=== PATIENT | female | born 1975 | race Caucasian/White ===

== ENCOUNTER 2021-01-06 23:06 | Inpatient (IN) | payer BC, SELFPAY ==
--- NOTE | ~2021-01-06 | XR_ITS ---
XR chest 2V 01/06/2021 23:38 Indication: Sternal chest pain Procedure: 2 view chest Comparison: No prior studies for comparison. Findings: Shallow inspiration with crowding of the pulmonary vessels. Bibasilar infiltrates may repre sent atelectasis or developing pneumonia. No pleural effusion, edema or pneumothorax. No acute osseou s abnormality. Impression: 1: Subtle bibasilar infiltrates may represent atelectasis or developing pneumonia. Reviewed, dictated and finalized at location A. Impression: 1: Subtle bibasilar infiltrates may represent atelectasis or developing pneumon ia.
--- NOTE | ~2021-01-06 | MR_ITS ---
EXAMINATION: MR MRCP wo/w con/w 3D wo ind DATE: 01/08/2021 08:10 INDICATION: Nausea and vomiting TECHNIQUE: Magnetic resonance imaging (MRI) of the abdomen was performed without and with intravenous contrast. Sequences included coronal T2-weighted SS-FSE ARC, coronal T2-weighted FS SS-FSE, coronal T2-weighted 2D FS FIESTA, Water:Coronal LAVA-Flex, sagittal T2-weighted SS-FSE ARC, axial SSFSE ARC, axial 3D DualEcho, axial DWI B=600, axial T1-weighted LAVA, FAT:Coronal LAVA-Flex, and coronal in and opposed phase LAVA-Flex. Thick-slab T2-weighted FRFSE-XL images were obtained for magnetic resonance cholangiopancreatography (MRCP). Maximum intensity projection 3-D reconstructions of the volumetric data were created by the technologist. Postcontrast sequences included a time course of axial T1-weig hted LAVA, FAT:Coronal LAVA-Flex, coronal in and opposed phase LAVA-Flex, and Water:Coronal LAVA-Flex . COMPARISON: Ultrasound from yesterday CONTRAST: Multihance, 20 cc FINDINGS: ABDOMEN MRI: There is loss of hepatic parenchymal signal on opposed phase imaging, consistent with he patic steatosis. There is no abnormal enhancement after contrast administration. The spleen, pancreas , and adrenal glands are normal. The kidneys are unremarkable. Stones are present in the mildly diste nded gallbladder. No definite gallbladder wall thickening or pericholecystic inflammatory change is i dentified. There are no pathologically enlarged abdominal lymph nodes. ABDOMEN MRCP: There is no intrahepatic or extrahepatic biliary dilatation. No stones or stricture are identified in the common bile duct. The pancreatic duct is normal in course and caliber. IMPRESSION: 1. Cholelithiasis and mild gallbladder distention without additional findings of cholecystitis. 2. No biliary dilatation, choledocholithiasis or bile duct stricture. Reviewed, dictated and finalized at location A. IMPRESSION: 1. Cholelithiasis and mild gallbladder distention without additional findings o f cholecystitis. 2. No biliary dilatation, choledocholithiasis or bile duct stricture.
--- NOTE | ~2021-01-06 | CT_ITS ---
EXAMINATION: CTA chest PE protocol DATE: 01/07/2021 00:30 INDICATION: Chest pain, elevated d-dimer TECHNIQUE: Computed tomography angiography (CTA) of the chest was performed with 100 mL Omnipaque-350 intravenous contrast timed to evaluate the pulmonary arteries. Coronal maximum intensity projection 3D-reconstructions were created by the technologist. The dose-length product (DLP) was 921.97 mGy-cm. Automated exposure control and iterative reconstruction technique were employed. COMPARISON: None. FINDINGS: The pulmonary arteries are well-opacified. No pulmonary embolism is identified. There is mi ld atelectasis. No focal airspace opacity is identified. There is no pleural effusion or pneumothorax . No pathologically enlarged thoracic lymph nodes are identified. The heart size is normal. Stones ar e present in the mildly distended gallbladder. There is mild thoracic spondylosis. IMPRESSION: 1. No pulmonary embolism or acute cardiopulmonary abnormality. 2. Cholelithiasis with mild gallbladder distention. Recommend correlation for right upper quadrant te nderness and if present, right upper quadrant ultrasound. Reviewed, dictated and finalized at location A. IMPRESSION: 1. No pulmonary embolism or acute cardiopulmonary abnormality. 2. Cholelithiasis with mild gallbladder distention. Recommend correlation for r ight upper quadrant tenderness and if present, right upper quadrant ultrasound.
--- NOTE | ~2021-01-06 | NM_ITS ---
EXAMINATION: NM hepatobiliary wo pharm DATE: 01/08/2021 16:53 CDT INDICATION: Abdominal pain. Cholelithiasis. COMPARISON: MRCP dated 01/08/2021 and ultrasound dated 01/07/2021. TECHNIQUE: 5.2 mCi Tc-99m mebrofenin (Choletec) was administered intravenously. Scintigraphic images of the abdomen were obtained for one hour. At the 1 hour time point, the patient drank 8 oz Ensure, and imaging was continued for 60 minutes. Gallbladder ejection fraction was calculated by the technol ogist. FINDINGS: There is normal clearance of radiotracer from the blood pool. There is homogeneous tracer u ptake by the liver. Gallbladder is identified at 15 minutes. Activity progresses to the bowel and gal lbladder. The gallbladder ejection fraction is 5%. Note that with this technique, normal GBEF >= 33%. IMPRESSION: 1. Normal gallbladder uptake with diminished gallbladder ejection fraction. Low GBEF is associated w ith gallbladder dysfunction, although not specific for acute or chronic cholecystitis. Reviewed, dictated and finalized at location A. IMPRESSION: 1. Normal gallbladder uptake with diminished gallbladder ejection fraction. Lo w GBEF is associated with gallbladder dysfunction, although not specific for ac ione or chronic cholecystitis.
--- NOTE | ~2021-01-06 | US_ITS ---
EXAMINATION: US abdomen limited EXAM DATE: 01/07/2021 09:18 INDICATION: Abnormal CT scan, right upper quadrant pain. Cholelithiasis. TECHNIQUE: Multiple grayscale and Doppler images of the abdomen right upper quadrant were obtained (b y a technologist who performed the scan) and subsequently reviewed. Correlation is made to CT pulmona ry scan earlier same date. FINDINGS: The pancreatic head and body are normal in appearance. The pancreatic tail is not visualized. The l iver has normal echogenicity and contour. There are no focal liver lesions identified. There is no evidence of intrahepatic biliary duct dilation. Portal venous flow was seen in the hepatopedal, nor mal direction and has normal Doppler waveform. No right-sided hydronephrosis. Common bile duct measures 4 mm, which is normal. The gallbladder wall is normal in thickness, with mo derate amount of distention. No sonographic evidence of pericholecystic fluid. There is cholelithia sis. Technologist performing exam reports patient demonstrated sonographic Quesada's sign. IMPRESSION: Cholelithiasis, moderately distended gallbladder and technologist believed there to be ov erlying tenderness. No gallbladder wall thickening, pericholecystic fluid or biliary duct dilation. If acute or chronic cholecystitis is clinical possibility, consider surgical consult, HIDA scan. Reviewed, dictated and finalized at location B. IMPRESSION: Cholelithiasis, moderately distended gallbladder and technologist b elieved there to be overlying tenderness. No gallbladder wall thickening, jaylin cholecystic fluid or biliary duct dilation. If acute or chronic cholecystitis i s clinical possibility, consider surgical consult, HIDA scan.
[2021-01-06 23:08] VITALS: BP 112/85; PULSE 99; RESP 20; TEMP 36.2; O2SAT 99
--- NOTE | 2021-01-06 23:08 | ECG_ITS ---
Measurements Intervals Valentine Rate: 63 P: 33 TN: 138 QRS: 12 QRSD: 86 T: 19 QT: 404 QTc: 416 Interpretive Statements SINUS RHYTHM LOW QRS VOLTAGE IN PRECORDIAL LEADS BORDERLINE R WAVE PROGRESSION, ANTERIOR LEADS BASELINE ARTIFACT- I, II, III, AVR, AVL, AVF, V1-V6 BORDERLINE ECG Electronically Signed On 01-07-2021 6:40:26 CDT by Mane Harris D.O.
[2021-01-06 23:27] VITALS: BP 149/93; PULSE 71; RESP 16; O2SAT 99
[2021-01-06 23:39] LABS: Basophils Percent Auto 0.3 % (0.2-1.2); Eosinophils Absolute Auto 0.1 K/mm3 (0-0.3); Eosinophils Percent Auto 0.6 % (0-4.4); Hematocrit 44.3 % (37.0-47.0); Hemoglobin 15.2 g/dL (12.0-15.0); Immature Granulocyte Absolute 0.02 K/mm3 (0.00-0.031); Immature Granulocyte Percent A 0.2 % (0-0.5); Lymphocytes Absolute Auto 2.33 K/mm3 (0.9-3.2); Mean Corpuscular HGB Conc 34.3 g/dl (32-36); Mean Corpuscular Volume 90.2 fl (80-100); Mean Platelet Volume 9.1 fl (7.4-10.4); Monocytes Absolute Auto 0.6 K/mm3 (0.1-0.6); Monocytes Percent Auto 6.8 % (2.6-8.5); Neutrophils Absolute Auto 5.9 K/mm3 (1.3-6.7); Neutrophils Percent Auto 66.1 % (45.5-73.1); Platelet Count Result 320 k/mm3 (150-375); Red Blood Count 4.91 M/mm3 (4.2-5.4); Red Cell Distribution Width 12.6 % (11.5-14.5)
--- NOTE | 2021-01-06 23:45 | PC.NURSE ---
Called and spoke to Amisha in lab to add on Lip
[2021-01-06] MEDS: ONDANSETRON INJ 4 MG/2 ML VIAL IV PUSH (23:49)
[2021-01-06] MEDS: ASPIRIN 81 MG CHEWABLE TABLET 324 MG PO (23:49)
[2021-01-06] MEDS: SODIUM CHLORIDE 0.9% IV 1,000 ML 999 ML IV CONT (23:49)
[2021-01-06 23:52] LABS: Lipase 55 U/L (23-300); Prothrombin Time 12.6 Seconds (11.1-14.7)
[2021-01-06 23:53] LABS: Partial Thromboplastin Time 23.1 SECONDS (22.3-36.8)
--- NOTE | 2021-01-06 23:56 | ED.CHESTPAIN ---
HPI - Chest Pain General Chief Complaint: Chest Pain Stated Complaint: chest pain Time Seen by Provider: 01/06/21 23:22 Source: patient Mode of arrival: ambulatory Limitations: no limitations History of Present Illness HPI narrative: Patient is a 45-year-old female complaining of chest pain, substernal, dull, radiating to back, 7 out of 10, accompanied by nausea vomiting started today. Patient denies any shortness of breath, abdominal pain, diarrhea, diaphoresis, fever or chills. Related Data Home Medications Medication Instructions Recorded Confirmed fluticasone propionate 50 1 spray INTRANASAL DAILY 07/31/20 08/01/20 mcg/actuation nasal spray,suspension Allergies Allergy/AdvReac Type Severity Reaction Status Date / Time No Known Allergies Allergy Verified 01/06/21 23:48 Review of Systems Review of Systems: All systems reviewed & are unremarkable except as noted in HPI and below Constitutional: Constitutional: Denies body ache(s), Denies chills, Denies excessive sweating, Denies fatigue, Denies fever(s), Denies headache(s), Denies lethargy, Denies malaise, Denies weakness and Denies weight loss Eyes: Eyes: Denies blurry vision, Denies change in vision and Denies loss of vision ENT: Denies dizziness, Denies ear discharge, Denies headache(s), Denies lip swelling, Denies epistaxis, Denies nasal congestion, Denies neck pain, Denies throat swelling and Denies tongue swelling Cardiovascular: Cardiovascular: Denies diaphoresis, Denies rapid heart rate, Denies edema, Denies irregular heart rhythm, Denies lightheadedness, Denies palpitations, Denies dyspnea and Denies dyspnea on exertion Respiratory: Respiratory: Denies chest congestion, Denies cough, Denies hemoptysis, Denies dyspnea and Denies dyspnea on exertion Gastrointestinal: Gastrointestinal: Denies abdominal pain, Denies melena, Denies hematochezia, Denies diarrhea and Denies hematemesis Musculoskeletal: Musculoskeletal: Denies abnormal gait, Denies deformity, Denies joint swelling, Denies limited range of motion, Denies neck pain and Denies numbness Neurologic: Denies Abnormal speech present, Denies abnormal gait, Denies confusion, Denies dizziness, Denies headache(s), Denies focal weakness, Denies loss of vision, Denies numbness, Denies Other visual disturbances, Denies Sensory deficit (Neuro) and Denies weakness Psychiatric: Psychiatric: Denies confusion, Denies depression, Denies auditory hallucinations, Denies homicidal ideation and Denies suicidal ideation Endocrine: Endocrine: Denies cold intolerance, Denies excessive sweating, Denies fatigue, Denies heat intolerance and Denies palpitations Hematologic/Lymphatic: Hematologic/Lymphatic: Denies easy bleeding and Denies easy bruising Allergic/Immunologic: Allergic/Immunologic: Denies lip swelling, Denies throat swelling and Denies tongue swelling PMFSH Past Medical History Medical History Anxiety History of use of contraceptive intrauterine device (IUD) Displaced emergency surgery to remove Seasonal allergies Surgical History Surgical History History of surgical removal of ganglion cyst Chest wall 2008 Hx of section X 2 2004 and 2007 Family History Family History Other Asthma Mother Thyroid disorder Social History Social History Smoking status: Never smoker Alcohol intake: current Substance use: never Exam Const: General: cooperative, healthy appearing, comfortable, no acute distress, well developed, alert and awake; No confusion Orientation/consciousness: oriented to person, oriented to place, oriented to time, patient oriented x3 and No confusion Limitations: no limitations HENMT: Head: normal to inspection, normocephalic and atraumatic Ears:
[2021-01-07] VITALS (20 sets, daily range): BP systolic 123–152; BP diastolic 72–92; PULSE 67–93; RESP 12–22; TEMP 36–37; O2SAT 96–99; BMI 46.3
[2021-01-07 00:07] LABS: Troponin I < 0.012 ng/mL (0.000-0.034)
[2021-01-07 00:14] LABS: Anion Gap 15 mmol/L (8-16); Blood Urea Nitrogen 14 mg/dL (7-17); Calcium 10.4 mg/dL (8.4-10.2); Carbon Dioxide 24 mmol/L (22-30); Chloride 102 mmol/L (98-107); Estimated CRCL calculation 109 ml/min; Estimated Glomerular Filt Rate > 60; Glucose 194 mg/dL (65-110); Potassium 3.5 mmol/L (3.4-5.0); Sodium 141 mmol/L (137-145)
[2021-01-07] MEDS: BELLADONNA ALK/PHENOB ELIX 10 ML, MAG HYDROX/ALUMINUM HYD/SIMETH 30 ML, LIDOCAINE HCL 2... PO ×2 (01:10→06:27)
--- NOTE | 2021-01-07 02:06 | PC.NURSE ---
Report received from MARTY Barnett.
--- NOTE | 2021-01-07 02:10 | PM.IMHP ---
H&P: HPI History of Present Illness Date/Time: 01/07/21 02:10 Chief Complaint: Nausea and vomiting Narrative: This is a 45-year-old female with past medical history significant for asthma, obesity, peptic ulcer. Patient presented to the emergency room after she had 20 episodes of nausea and vomiting no blood present in the vomits initially foot particles on [place] cell as it was just clear liquid, she developed then epigastric and retrosternal pain which has gotten worse, patient denies any diarrhea. Patient denies use of alcohol, denies use of tobacco products, has been in her usual state of health. Denies any fevers rigors chills cough sputum production a CT angio was negative for acute pulmonary emboli, preliminary workup has been essentially nonrevealing. Patient has been placed in observation for further treatment and evaluation. Review of Systems Review of Systems: Nausea vomiting epigastric and retrosternal pain Constitutional: Constitutional: Denies chills, Denies excessive sweating, Denies fatigue, Denies fever(s), Denies lethargy, Denies malaise, Reports poor appetite and Denies weakness Eyes: Eyes: Denies change in vision ENT: Denies dysphagia, Denies vertigo, Denies nasal congestion, Denies nasal discharge, Denies nasal obstruction and Denies odynophagia Cardiovascular: Cardiovascular: Denies irregular heart rhythm, Denies claudication, Denies lightheadedness, Denies radiating jaw, neck or arm pain, Denies palpitations, Denies dyspnea on exertion and Denies orthopnea Respiratory: Respiratory: Denies cough and Denies dyspnea Gastrointestinal: Gastrointestinal: Reports abdominal pain (Epigastric), Denies melena, Denies coffee ground emesis, Reports dyspepsia, Reports heartburn, Denies diarrhea, Reports nausea and Reports vomiting Genitourinary: Genitourinary: Denies dysuria Musculoskeletal: Musculoskeletal: Denies arthralgias and Denies joint swelling Integumentary/Breasts: Skin/Breast: Denies rash Neurologic: Denies vertigo, Denies dizziness, Denies focal weakness, Denies Sensory deficit (Neuro) and Denies tremor(s) Psychiatric: Psychiatric: Denies anxiety, Denies behavioral changes, Denies change in appetite and Denies depression Endocrine: Endocrine: Reports as per HPI Hematologic/Lymphatic: Hematologic/Lymphatic: Reports as per HPI Allergic/Immunologic: Allergic/Immunologic: Reports as per HPI PMFSH Past Medical History Medical History Anxiety History of use of contraceptive intrauterine device (IUD) Displaced emergency surgery to remove Seasonal allergies Surgical History Surgical History History of surgical removal of ganglion cyst Chest wall 2008 Hx of section X 2 2004 and 2007 Family History Family History (Updated 01/07/21 @ 02:46 by Deb Paul RN) Other Asthma Mother Thyroid disorder Father Heart valve replaced History of heart artery stent STEMI (ST elevation myocardial infarction) Hypertension Son Asthma Grandparent Cerebrovascular accident History of blood clots Social History Social History Smoking status: Never smoker Second hand tobacco smoke exposure: Yes Alcohol intake: never Substance use: never Spiritual care concerns: No Meds Home Medications and Allergies Home Medications Medication Instructions Recorded Confirmed Type fluticasone propionate 50 1 spray INTRANASAL DAILY 07/31/20 01/07/21 History mcg/actuation nasal spray,suspension Allergies Allergy/AdvReac Type Severity Reaction Status Date / Time No Known Allergies Allergy Verified 01/06/21 23:48 Vital Signs Vital Signs - 24 hr 01/06/21 23:08 01/06/21 23:27 01/07/21 00:17 Temperature 97.2 F L Pulse Rate 99 71 73 Respiratory Rate 20 16 12 Blood Pressure 112/85 149/93 H 129/86
--- NOTE | 2021-01-07 02:23 | ADMGEN ---
This patient, Susanna Felton, was admitted to IMU Room 209-01 on 01/07/21 at 0220. Patient/family oriented to hospital policies and general routines including ID bracelet, bed and alarms, visiting hours, pain management, procedures, bathroom and other care routines, personal items, smoking policy, room service/diet, and visiting hours. Information on how to activate the Rapid Response Team has been discussed. Patient/Family are encouraged to report perceived risks to care and to ask questions if they do not understand what they are told or what they should do.
[2021-01-07 02:45] LABS: Troponin I < 0.012 ng/mL (0.000-0.034)
[2021-01-07] MEDS: ACETAMINOPHEN 500 MG TABLET 1000 MG PO (03:16)
[2021-01-07] MEDS: SODIUM CHLORIDE 0.9% IV 1,000 ML 85 ML IV CONT ×2 (03:17→17:44)
[2021-01-07 05:27] LABS: Troponin I < 0.012 ng/mL (0.000-0.034)
--- NOTE | 2021-01-07 08:22 | PM.IMPN ---
Progress Note: A&P Assessment and Plan (1) Intractable nausea and vomiting: Code(s): R11.2 - Nausea with vomiting, unspecified Status: Acute (2) Epigastric pain: Code(s): R10.13 - Epigastric pain Status: Acute Additional Plan 45yo lady, otherwise healthy with epigastric pain & nausea. Currently getting IVF 85 cc/hr. CT showing possible cholecystitis, will obtain RUQ US, especially as history consistent with cholecystitis: epigastric pain radiating sround to back following fatty meal. Time Spent With Patient Time with patient: less than 15 minutes Subjective Date/time seen: 01/07/21 08:22 no acute complaints still feeling nauseous and having epigastric pain Review of Systems Review of Systems: All systems reviewed & are unremarkable except as noted in HPI and below Exam Const: General: no acute distress Neck: Neck: no JVD Resp: Effort & Inspection: normal respiratory effort Auscultation: clear to auscultation bilaterally Cardio: Rate: regular rate Rhythm: regular rhythm GI: Inspection: non-distended Objective Data Vital Signs Vital Signs: Vital Signs - 24 hr 01/06/21 23:08 01/06/21 23:27 01/07/21 00:17 Temperature 97.2 F L Pulse Rate 99 71 73 Respiratory Rate 20 16 12 Blood Pressure 112/85 149/93 H 129/86 Pulse Oximetry 99 99 99 01/07/21 01:11 01/07/21 02:01 01/07/21 02:20 Temperature 96.8 F L Pulse Rate 71 69 67 Respiratory Rate 12 15 22 H Blood Pressure 134/92 H 138/85 152/84 H Pulse Oximetry 98 98 97 01/07/21 02:23 01/07/21 02:30 01/07/21 04:00 Temperature Pulse Rate 93 69 77 Respiratory Rate 22 H Blood Pressure Pulse Oximetry 98 01/07/21 04:16 01/07/21 06:00 01/07/21 07:51 Temperature 97.5 F L 98.6 F Pulse Rate 69 72 81 Respiratory Rate 22 H 12 Blood Pressure 135/72 127/79 Pulse Oximetry 98 96 Intake/Output Intake/Output: Intake & Output 01/04/21 01/05/21 01/06/21 01/07/21 23:59 23:59 23:59 23:59 Intake Total 1000 Output Total 450 Balance 550 Meds/Results Medications: Active Medications Generic Name Dose Route Start Last Admin Trade Name Darekq PRN Reason Stop Dose Admin Acetaminophen 1,000 mg 01/07/21 02:55 01/07/21 03:16 Acetaminophen 500 Mg Tablet PO 1,000 mg Q6H PRN Administration Pain Rated 1-3 Fluticasone Propionate 1 spray 01/07/21 09:00 Fluticasone Propionate 0.05% Na Spr 16 Gm Btl (*Bkc) NASAL DAILY REGINE Sodium Chloride 1,000 mls @ 85 mls/hr 01/07/21 03:00 01/07/21 03:17 Normal Saline Iv IV CONT 85 mls/hr .[id number] REGINE Administration Radiology Results: ITS Impressions Chest X-Ray 01/06/21 23:39 Impression: 1: Subtle bibasilar infiltrates may represent atelectasis or developing pneumonia. Chest CTA 01/07/21 06:49 IMPRESSION: 1. No pulmonary embolism or acute cardiopulmonary abnormality. 2. Cholelithiasis with mild gallbladder distention. Recommend correlation for right upper quadrant tenderness and if present, right upper quadrant ultrasound. Labs Labs: Laboratory Results - last 24 hr 01/06/21 01/06/21 01/06/21 23:29 23:29 23:29 WBC 9.0 RBC 4.91 Hgb 15.2 H Hct 44.3 MCV 90.2 MCH 31.0 MCHC 34.3 RDW 12.6 Plt Count 320 MPV 9.1 Immature Gran % (Auto) 0.2 Neut % (Auto) 66.1 Lymph % (Auto) 26.0 [facility] % (Auto) 6.8 Eos % (Auto) 0.6 Baso % (Auto) 0.3 Lymph # (Auto) 2.33 [facility] # (Auto) 0.6 Eos # (Auto) 0.1 Baso # (Auto) 0.0 Abs Immat Gran (auto) 0.02 Absolute Neuts (auto) 5.9 Absolute Nucleated RBC 0.0 Nucleated RBC % 0.0 PT 12.6 INR 1.0 APTT 23.1 D-Dimer 0.60 H Sodium 141 Potassium 3.5 Chloride 102 Carbon Dioxide 24 Anion Gap 15 BUN 14 Creatinine 0.70 Estim Creat Clear Calc 109 Estimated GFR > 60 Glucose 194 H Calcium 10.4 H Troponin I < 0.012 Lipase 55 01/07/21 01/07/21 02:10 04:48
[2021-01-07] MEDS: FLUTICASONE PROPIONATE 0.05% NA SPR 16 GM BTL (*BKC) 1 SPRAY NASAL (08:32)
--- NOTE | 2021-01-07 14:08 | PC.NURSE ---
Called Dr Lopez off ice. Spoke with Vannessa regarding surgery consult. 14:05. Dr. Mendoza to call back.
--- NOTE | 2021-01-07 14:34 | PC.NURSE ---
GI consult called to Dr. Duran office. Spoke to Todd. Dr. Duran To Call Back
[2021-01-07] MEDS: ONDANSETRON INJ 4 MG/2 ML VIAL IV PUSH (16:04)
[2021-01-07] MEDS: HYDROcodone/acetaminophen (*CRX) 10-325 MG TABLET 1 TAB PO (16:04)
[2021-01-08] VITALS (18 sets, daily range): BP systolic 111–133; BP diastolic 71–93; PULSE 66–92; RESP 16–22; TEMP 35.8–36.7; O2SAT 95–99
[2021-01-08] MEDS: SODIUM CHLORIDE 0.9% IV 1,000 ML 85 ML IV CONT ×2 (04:31→20:08)
[2021-01-08 05:43] LABS: Basophils Percent Auto 0.5 % (0.2-1.2); Eosinophils Absolute Auto 0.1 K/mm3 (0-0.3); Eosinophils Percent Auto 2.4 % (0-4.4); Hematocrit 39.1 % (37.0-47.0); Hemoglobin 13.1 g/dL (12.0-15.0); Immature Granulocyte Absolute 0.01 K/mm3 (0.00-0.031); Immature Granulocyte Percent A 0.2 % (0-0.5); Lymphocytes Absolute Auto 1.91 K/mm3 (0.9-3.2); Lymphocytes Percent Auto 46.2 % (18.3-44.2); Mean Corpuscular HGB Conc 33.5 g/dl (32-36); Mean Corpuscular Hemoglobin 30.8 pg (26-34); Mean Platelet Volume 9.3 fl (7.4-10.4); Monocytes Absolute Auto 0.3 K/mm3 (0.1-0.6); Neutrophils Absolute Auto 1.8 K/mm3 (1.3-6.7); Neutrophils Percent Auto 42.7 % (45.5-73.1); Platelet Count Result 247 k/mm3 (150-375); Red Blood Count 4.25 M/mm3 (4.2-5.4); Red Cell Distribution Width 12.9 % (11.5-14.5); White Blood Count 4.1 K/mm3 (4.5-10.0)
[2021-01-08 06:07] LABS: Alanine Aminotransferase 287 U/L (4-35); Albumin Level 3.5 g/dL (3.5-5.1); Alkaline Phosphatase 90 U/L (38-126); Anion Gap 7 mmol/L (8-16); Aspartate Amino Transferase 127 U/L (14-36); Bilirubin,Total 1.3 mg/dL (0.2-1.3); Blood Urea Nitrogen 9 mg/dL (7-17); Calcium 8.5 mg/dL (8.4-10.2); Carbon Dioxide 25 mmol/L (22-30); Chloride 107 mmol/L (98-107); Estimated CRCL calculation 114 ml/min; Estimated Glomerular Filt Rate > 60; Glucose 90 mg/dL (65-110); Magnesium 2.2 mg/dL (1.6-2.3); Phosphorus 4.2 mg/dL (2.5-4.5); Potassium 3.8 mmol/L (3.4-5.0); Sodium 139 mmol/L (137-145)
--- NOTE | 2021-01-08 07:20 | PM.IMPN ---
Progress Note: A&P Assessment and Plan (1) Intractable nausea and vomiting: Code(s): R11.2 - Nausea with vomiting, unspecified Status: Acute (2) Epigastric pain: Code(s): R10.13 - Epigastric pain Status: Acute Additional Plan 45yo lady, otherwise healthy with a few days of epigastric pain & nausea. -Lipase, troponins negative -cholecystitis vs symptomatic cholelithiasis are possible based on history of epigastric pain radiating around to back following fatty meal, CT & US show stones but no overt inflammatory changes; MRCP ordered, GI & surgery on consult -Transaminitis, and as such hepatitis panel ordered -Currently getting IVF 85 cc/hr, pain control with norco Time Spent With Patient Time with patient: less than 15 minutes Subjective Date/time seen: 01/08/21 07:20 continued abdominal pain otherwise resting comfortably Review of Systems Review of Systems: All systems reviewed & are unremarkable except as noted in HPI and below Exam Const: General: no acute distress Neck: Neck: no JVD Resp: Effort & Inspection: normal respiratory effort Auscultation: clear to auscultation bilaterally Cardio: Rate: regular rate Rhythm: regular rhythm GI: Other: diffuse epigastric pain to palpation chandler sign negative no rebound tenderness Objective Data Vital Signs Vital Signs: Vital Signs - 24 hr 01/07/21 07:51 01/07/21 08:00 01/07/21 10:00 Temperature 98.6 F Pulse Rate 81 93 81 Respiratory Rate 12 Blood Pressure 127/79 Pulse Oximetry 96 99 01/07/21 12:00 01/07/21 14:00 01/07/21 15:59 Temperature 98.1 F 97.9 F Pulse Rate 73 72 77 Respiratory Rate 12 18 Blood Pressure 123/84 126/81 Pulse Oximetry 99 99 01/07/21 16:00 01/07/21 16:01 01/07/21 18:00 Temperature 97.9 F Pulse Rate 77 77 76 Respiratory Rate 18 Blood Pressure 126/81 Pulse Oximetry 99 99 01/07/21 20:00 01/07/21 22:00 01/08/21 00:00 Temperature 98.1 F Pulse Rate 89 68 82 Respiratory Rate 18 20 Blood Pressure 126/77 Pulse Oximetry 99 97 01/08/21 02:00 01/08/21 04:00 01/08/21 06:00 Temperature 96.8 F L Pulse Rate 80 66 74 Respiratory Rate 22 H Blood Pressure 120/73 Pulse Oximetry 99 Intake/Output Intake/Output: Intake & Output 01/05/21 01/06/21 01/07/21 01/08/21 23:59 23:59 23:59 23:59 Intake Total 2240 1000 Output Total 1050 900 Balance 1190 100 Meds/Results Medications: Active Medications Generic Name Dose Route Start Last Admin Trade Name Freq PRN Reason Stop Dose Admin Hydrocodone Bitart/Acetaminophen 1 tab 01/07/21 08:49 01/07/21 16:04 Hydrocodone/Acetaminophen (*Crx) 10-325 Mg Tablet PO 1 tab Q4H PRN Administration Pain Rated 7-10 Hydrocodone Bitart/Acetaminophen 1 tab 01/08/21 07:19 Hydrocodone/Acetaminophen (*Crx) 5-325 Mg Tablet PO Q4H PRN Pain Rated 4-6 Fluticasone Propionate 1 spray 01/07/21 09:00 01/07/21 08:32 Fluticasone Propionate 0.05% Na Spr 16 Gm Btl (*Bkc) NASAL 1 spray DAILY REGINE Administration Sodium Chloride 1,000 mls @ 85 mls/hr 01/07/21 03:00 01/08/21 04:31 Normal Saline Iv IV CONT 85 mls/hr .[id number] REGINE Administration Ondansetron HCl 4 mg 01/07/21 15:51 01/07/21 16:04 Ondansetron Inj 4 Mg/2 Ml Vial IV PUSH 4 mg Q6H PRN Administration Nausea And Vomiting Radiology Results: ITS Impressions Chest X-Ray 01/06/21 23:39 Impression: 1: Subtle bibasilar infiltrates may represent atelectasis or developing pneumonia. Chest CTA 01/07/21 06:49 IMPRESSION: 1. No pulmonary embolism or acute cardiopulmonary abnormality. 2. Cholelithiasis with mild gallbladder distention. Recommend correlation for right upper quadrant tenderness and if present, right upper quadrant ultrasound. Abdomen Ultrasound 01/07/21 09:20 IMPRESSION: Cholelithiasis, moderately distended gallbladder and technologist believed there to be overlying tenderness. No gallbladder
[2021-01-08 08:03] LABS: Hepatitis B Surface Antigen Negative (Negative)
[2021-01-08 08:09] LABS: HAV RESULT Negative (Negative); Hepatitis B Core IgM Result Negative (Negative)
--- NOTE | 2021-01-08 08:11 | PM.CNGS ---
Assessment and Plan Assessment and plan (1) Cholelithiasis with cholecystitis: Code(s): K80.10 - Calculus of gallbladder with chronic cholecystitis without obstruction Status: Acute Assessment and Plan: All imaging was reviewed and discussed with the patient and her in detail. MRCP is pending. She has evidence of cholelithiasis with mild gallbladder distention. No pericholecystic fluid, GB wall thickening, or biliary ductal dilatation. WBC normal and mild elevation in AST/ALT. Low suspicion for choledocholithiasis. Her history does raise suspicion for the possibility of another upper GI source for her epigastric pain. She reports having almost immediate pain after oral intake of even non-fatty foods (clear liquids yesterday). It is not entirely clear if this is acute cholecystitis, but this could be a potential possibility. She could also have an element of chronic cholecystitis with her previous episodes of abdominal pain. We will await GI's recommendation and MRCP results. Depending on these results and if an EGD is planned, we could consider further evaluation with a HIDA scan if necessary to evaluate for cystic duct patency. I have discussed this with the patient and answered all her questions. We did briefly discuss a typical laparoscopic cholecystectomy, risks, potential outcomes, and expected recovery. Thank you for allowing us to see the patient in consultation and we will continue to follow along with you. (2) Epigastric pain: Code(s): R10.13 - Epigastric pain Status: Acute Assessment and Plan: Unclear etiology. Still undergoing further workup. GI has been consulted. She does have a history of peptic ulcer disease and may benefit from an EGD prior to proceeding with surgery to rule out another cause for her pain. See plan above. (3) Chest pain: Qualifiers: Chest pain type: unspecified Qualified Code(s): R07.9 - Chest pain, unspecified Code(s): R07.9 - Chest pain, unspecified Status: Acute Assessment and Plan: Chest pain has resolved. Cardiac workup negative for ACS. (4) Obesity, morbid, BMI 40.0-49.9: Code(s): E66.01 - Morbid (severe) obesity due to excess calories Status: Acute Additional Plan I have discussed the patient's case and plan of care with Dr. Mendoza. History of Present Illness Consult details Consult date: 01/08/21 Reason for consult: gallstones (Cholelithiasis with cholecystitis, Abdominal pain, Nausea) Requesting physician: Alejo Butler MD Narrative: This is a 45 year old obese female with a history of peptic ulcer disease, who presented to the ER with complaints of epigastric and substernal chest pain with vomiting. The patient reports having 4-5 similar episodes of pain that have occurred since August of this year, but were much more mild in nature. She felt that each episode of pain followed eating a higher fat meal. The first episode followed eating lasagna. She tried avoiding fatty foods, but was not following a strict diet. Then, 2 days ago, she had only had three bites of a cheeseburger and quickly after developed epigastric abdominal pain that radiated to her chest and across her upper abdomen, and through to her upper mid back. This pain was much more severe than any previous episode. Typically, her pain would improve after a hot shower and if she vomited, but the pain continued even after vomiting multiple times. She reports an innumerable amount of vomiting overnight without any hematemesis or coffee-ground emesis noted. The pain was unrelenting. She felt that her pain also began to radiate into her neck and down her right arm. She was concerned of having a heart attack, therefore she presented to the ER for evaluation. Labs showed a normal white blood cell count, normal troponin, and a slightly elevated D-dimer. This prompted a CTA chest, which showed no pulmonary embolism, but did show cholelithiasis with mild gallbladder distention
[2021-01-08] MEDS: FLUTICASONE PROPIONATE 0.05% NA SPR 16 GM BTL (*BKC) 1 SPRAY NASAL (08:14)
[2021-01-08 08:20] LABS: Hepatitis C Virus Antibody Negative (Negative)
[2021-01-08 11:33] LABS: Pregnancy On Board Control Positive; Urine Pregnancy Test Negative
--- NOTE | 2021-01-08 12:54 | PM.PNGS ---
Progress Note: A&P Assessment and Plan (1) Cholelithiasis with cholecystitis: Code(s): K80.10 - Calculus of gallbladder with chronic cholecystitis without obstruction Status: Acute Assessment and Plan: Cholelithiasis with mild gallbladder distention on imaging. No other evidence suggestive of cholecystitis. MRCP showed no choledocholithiasis or other significant findings. She is still having abdominal pain and nausea. Currently NPO. Await GI consultation and recommendations regarding possible EGD to evaluate for other etiologies for her abdominal pain. Will order a HIDA scan today to evaluate the gallbladder further. If her cystic duct is patent, then we would be okay with advancing her diet to low fat and having her follow-up as an outpatient to schedule a laparoscopic cholecystectomy with Dr. Mendoza. (2) Epigastric pain: Code(s): R10.13 - Epigastric pain Status: Acute Assessment and Plan: Improved. See plan above. Awaiting GI's recommendations. (3) Chest pain: Qualifiers: Chest pain type: unspecified Qualified Code(s): R07.9 - Chest pain, unspecified Code(s): R07.9 - Chest pain, unspecified Status: Acute Assessment and Plan: Chest pain has resolved. Cardiac workup negative for ACS. (4) Obesity, morbid, BMI 40.0-49.9: Code(s): E66.01 - Morbid (severe) obesity due to excess calories Status: Acute Additional Plan I have discussed the patient's case and plan of care with Dr. Mendoza. Subjective Subjective Date/Time Seen: 01/08/21 11:54 Patient reports: feels better, pain is less, nausea and afebrile Interval history: Patient seen last evening in consultation and is now being seen again this morning. She reports feeling better today with her pain improved overnight. This is now a dull aching epigastric abdominal pain. Still having nausea that has improved, but no vomiting. She is still NPO. MRCP done this morning. No other complaints at this time. Review of Systems Review of Systems: All systems reviewed & are unremarkable except as noted in HPI and below Exam Const: General: comfortable, no acute distress, alert and awake Nutritional Appearance: obese Orientation/consciousness: patient oriented x3 GI: Inspection: non-distended, obesity and no visible herniation GI Palp: Yes Soft to palpation, Yes Tenderness to palpation present (GI) (across upper abd, worst in RUQ), Yes Guarding due to palpation present (GI) (RUQ), No Palpable mass present and No Rebound tenderness present Auscultation: normal bowel sounds Skin: General skin exam: normal color Neuro: General: moves all extremities and no focal motor deficits Extrem: General: no clubbing, cyanosis or edema and no calf tenderness Psych: Mental Status: mental status grossly normal Insight: Good insight present (Psych) Judgement: Good judgement present (Psych) Objective Data Vital Signs Vital Signs: Vital Signs - 24 hr 01/07/21 14:00 01/07/21 15:59 01/07/21 16:00 Temperature 97.9 F Pulse Rate 72 77 77 Respiratory Rate 18 Blood Pressure 126/81 Pulse Oximetry 99 99 01/07/21 16:01 01/07/21 18:00 01/07/21 20:00 Temperature 97.9 F Pulse Rate 77 76 89 Respiratory Rate 18 18 Blood Pressure 126/81 Pulse Oximetry 99 99 01/07/21 22:00 01/08/21 00:00 01/08/21 02:00 Temperature 98.1 F Pulse Rate 68 82 80 Respiratory Rate 20 Blood Pressure 126/77 Pulse Oximetry 97 01/08/21 04:00 01/08/21 06:00 01/08/21 10:33 Temperature 96.8 F L 96.5 F L Pulse Rate 66 74 78 Respiratory Rate 22 H 20 Blood Pressure 120/73 133/93 H Pulse Oximetry 99 98 01/08/21 11:47 01/08/21 12:30 Temperature 98.1 F 96.7 F L Pulse Rate 70 72 Respiratory Rate 16 18 Blood Pressure 117/72 132/89 Pulse Oximetry 97 95 Intake/Output Intake/Output: Intake & Output 01/05/21 01/06/21 01/07/21 01/08/21 23:59 23:59 23:59 23:59 Intake Total 2240 1000 Output Total
--- NOTE | 2021-01-08 13:46 | PC.NURSE ---
On 01/08/21, the student, [Kelly Hanson], provided care and completed [employer] documentation on this patient. I have reviewed the student's documentation and agree with the findings.
--- NOTE | 2021-01-08 17:44 | WPDGICN ---
Assessment and Plan Assessment and plan (1) Epigastric pain: Code(s): R10.13 - Epigastric pain Status: Acute Assessment and Plan: remote history of ulcers but history suggestive of GB disease MRCP reviewed, no bile duct stones- no need of ercp surgery on board will do EGD to rule out PUD (HIDA scan showed normal gallbladder uptake with diminished gallbladder ejection fraction 5%), if negative then most likely will need lap aisha (2) Gallbladder colic: Code(s): K80.20 - Calculus of gallbladder without cholecystitis without obstruction Status: Acute Assessment and Plan: suspicious based on history also had elevated transaminases but probably could have component of fatty liver (obesity) (3) Cholelithiasis with cholecystitis: Code(s): K80.10 - Calculus of gallbladder with chronic cholecystitis without obstruction Status: Acute Assessment and Plan: surgery on board (4) Obesity, morbid, BMI 40.0-49.9: Code(s): E66.01 - Morbid (severe) obesity due to excess calories Status: Acute (5) Intractable nausea and vomiting: Code(s): R11.2 - Nausea with vomiting, unspecified Status: Acute Assessment and Plan: improved egd to assess GI Consult Note Consult date/time: 01/08/21 17:44 Reason for consult: n/v, upper abdominal pain HPI: Susanna Felton is a 45 year old female with history of gastric ulcers about 20 years ago (had egd) but not longer taking any meds, denies gerd. She says that for last 2 months has been having RUQ pain after eating fatty food, pain will last 1-2 hours. Here after had Gena baird then developed ruq pain with intractable nausea and vomiting. She had CTA chest that showed no pulmonary embolism or acute cardiopulmonary abnormality but cholelithiasis with mild gallbladder distention (had mild elevated D-dimer),today mild elevated transaminases with normal bilirubin. MRCP no choledocholithiasis but mild dilated GB and cholelithiasis. She just completed HIDA scan. Review of Systems Constitutional: Constitutional: Denies chills Eyes: Eyes: Denies blurry vision ENT: Reports Normal hearing present Cardiovascular: Cardiovascular: Denies chest pain Respiratory: Respiratory: Denies dyspnea Gastrointestinal: Gastrointestinal: Reports abdominal pain, Reports nausea and Reports vomiting Genitourinary: Genitourinary: Denies hematuria Musculoskeletal: Musculoskeletal: Denies neck pain Integumentary/Breasts: Skin/Breast: Denies dry skin Neurologic: Denies headache(s) Psychiatric: Psychiatric: Reports no additional psychiatric complaints [facility] Past Medical History Medical History (Updated 01/08/21 @ 17:48 by Ata Seth MD) Anxiety Gallbladder colic History of use of contraceptive intrauterine device (IUD) Displaced emergency surgery to remove Seasonal allergies Surgical History Surgical History History of surgical removal of ganglion cyst Chest wall 2008 Hx of section X 2 2004 and 2007 Family History Family History Other Asthma Mother Thyroid disorder Father Heart valve replaced History of heart artery stent STEMI (ST elevation myocardial infarction) Hypertension Son Asthma Grandparent Cerebrovascular accident History of blood clots Social History Social History Smoking status: Never smoker Second hand tobacco smoke exposure: Yes Alcohol intake: never Substance use: never Spiritual care concerns: No Meds Home Medications and Allergies Home Medications Medication Instructions Recorded Confirmed Type fluticasone propionate 50 1 spray INTRANASAL DAILY 07/31/20 01/07/21 History mcg/actuation nasal spray,suspension Allergies Allergy/AdvReac Type Severity Reaction Status Da
[2021-01-09] VITALS (18 sets, daily range): BP systolic 102–141; BP diastolic 59–87; PULSE 71–98; RESP 12–26; TEMP 36–37.1; O2SAT 95–99
[2021-01-09 05:31] LABS: Basophils Percent Auto 0.6 % (0.2-1.2); Eosinophils Absolute Auto 0.2 K/mm3 (0-0.3); Eosinophils Percent Auto 3.3 % (0-4.4); Hematocrit 40.6 % (37.0-47.0); Hemoglobin 13.4 g/dL (12.0-15.0); Immature Granulocyte Absolute 0.02 K/mm3 (0.00-0.031); Immature Granulocyte Percent A 0.4 % (0-0.5); Lymphocytes Absolute Auto 1.81 K/mm3 (0.9-3.2); Lymphocytes Percent Auto 37.8 % (18.3-44.2); Mean Platelet Volume 9.3 fl (7.4-10.4); Monocytes Absolute Auto 0.4 K/mm3 (0.1-0.6); Monocytes Percent Auto 9.2 % (2.6-8.5); Neutrophils Absolute Auto 2.3 K/mm3 (1.3-6.7); Neutrophils Percent Auto 48.7 % (45.5-73.1); Platelet Count Result 242 k/mm3 (150-375); Red Blood Count 4.32 M/mm3 (4.2-5.4); Red Cell Distribution Width 12.6 % (11.5-14.5); White Blood Count 4.8 K/mm3 (4.5-10.0)
[2021-01-09 05:40] LABS: Hemoglobin A1C 5.4 % (<5.7)
[2021-01-09 05:46] LABS: Alanine Aminotransferase 216 U/L (4-35); Albumin Level 3.5 g/dL (3.5-5.1); Alkaline Phosphatase 86 U/L (38-126); Anion Gap 8 mmol/L (8-16); Aspartate Amino Transferase 48 U/L (14-36); Bilirubin,Total 1.1 mg/dL (0.2-1.3); Blood Urea Nitrogen 10 mg/dL (7-17); Calcium 8.7 mg/dL (8.4-10.2); Carbon Dioxide 25 mmol/L (22-30); Chloride 106 mmol/L (98-107); Estimated CRCL calculation 131 ml/min; Estimated Glomerular Filt Rate > 60; Glucose 90 mg/dL (65-110); Magnesium 2.1 mg/dL (1.6-2.3); Phosphorus 3.9 mg/dL (2.5-4.5); Potassium 3.8 mmol/L (3.4-5.0); Sodium 139 mmol/L (137-145)
--- NOTE | 2021-01-09 07:46 | PM.IMPN ---
Progress Note: A&P Assessment and Plan (1) Intractable nausea and vomiting: Code(s): R11.2 - Nausea with vomiting, unspecified Status: Acute Assessment and Plan: NPO Continue to monitor (2) Epigastric pain: Code(s): R10.13 - Epigastric pain Status: Acute Assessment and Plan: Continue to monitor Likely secondary to nausea and vomiting numerous episodes Continue to monitor Supportive care Additional Plan 45yo lady, otherwise healthy with a few days of epigastric pain & nausea. -Lipase, troponins negative -cholecystitis vs symptomatic cholelithiasis are possible based on history of epigastric pain radiating around to back following fatty meal, CT & US show stones but no overt inflammatory changes; MRCP showing cholelithiases and gallbladder distension, HIDA showing low GBEF associated with gallbladder dysfunction; GI & surgery on consult -Transaminitis, and as such hepatitis panel ordered, which was negative; today decreasing -Currently getting IVF 100 cc/hr, pain control with norco and zofran Plan to do EGD to r/o PUD, then if negative likely lap aisha Time Spent With Patient Time with patient: less than 15 minutes Subjective Date/time seen: 01/09/21 07:46 no acute complaints, abdominal pain feels better Review of Systems Review of Systems: All systems reviewed & are unremarkable except as noted in HPI and below Exam Const: General: no acute distress Neck: Neck: no JVD Resp: Effort & Inspection: normal respiratory effort Auscultation: clear to auscultation bilaterally Cardio: Rate: regular rate Rhythm: regular rhythm GI: Inspection: non-distended Objective Data Vital Signs Vital Signs: Vital Signs - 24 hr 01/08/21 08:00 01/08/21 10:00 01/08/21 10:33 Temperature 96.5 F L Pulse Rate 80 78 78 Respiratory Rate 20 Blood Pressure 133/93 H Pulse Oximetry 98 01/08/21 11:47 01/08/21 12:00 01/08/21 12:30 Temperature 98.1 F 96.7 F L Pulse Rate 70 84 72 Respiratory Rate 16 18 Blood Pressure 117/72 132/89 Pulse Oximetry 97 95 01/08/21 14:00 01/08/21 16:00 01/08/21 17:06 Temperature 96.9 F L Pulse Rate 87 83 81 Respiratory Rate 21 H Blood Pressure 126/77 Pulse Oximetry 97 01/08/21 18:00 01/08/21 19:01 01/08/21 20:00 Temperature 97.0 F L Pulse Rate 92 84 87 Respiratory Rate 20 Blood Pressure 121/71 Pulse Oximetry 98 01/08/21 21:55 01/08/21 23:53 01/09/21 00:00 Temperature 96.9 F L Pulse Rate 84 81 85 Respiratory Rate 16 Blood Pressure 111/77 Pulse Oximetry 97 01/09/21 01:45 01/09/21 03:28 01/09/21 04:00 Temperature 97.5 F L Pulse Rate 78 83 78 Respiratory Rate 16 Blood Pressure 120/75 Pulse Oximetry 96 01/09/21 05:58 Temperature Pulse Rate 74 Respiratory Rate Blood Pressure Pulse Oximetry Intake/Output Intake/Output: Intake & Output 01/06/21 01/07/21 01/08/21 01/09/21 23:59 23:59 23:59 23:59 Intake Total 2240 2000 857 Output Total 1050 1850 400 Balance 1190 150 457 Meds/Results Medications: Active Medications Generic Name Dose Route Start Last Admin Trade Name Freq PRN Reason Stop Dose Admin Hydrocodone Bitart/Acetaminophen 1 tab 01/07/21 08:49 01/07/21 16:04 Hydrocodone/Acetaminophen (*Crx) 10-325 Mg Tablet PO 1 tab Q4H PRN Administration Pain Rated 7-10 Hydrocodone Bitart/Acetaminophen 1 tab 01/08/21 07:19 Hydrocodone/Acetaminophen (*Crx) 5-325 Mg Tablet PO Q4H PRN Pain Rated 4-6 Fluticasone Propionate 1 spray 01/07/21 09:00 01/08/21 08:14 Fluticasone Propionate 0.05% Na Spr 16 Gm Btl (*Bkc) NASAL 1 spray DAILY REGINE Administration Sodium Chloride 1,000 mls @ 100 mls/hr 01/07/21 03:00 01/09/21 03:50 Normal Saline Iv IV CONT 85 mls/hr .Q10H REGINE Infusion Ondansetron HCl 4 mg 01/07/21 15:51 01/07/21 16:04 Ondansetron Inj 4 Mg/2 Ml Vial IV PUSH 4 mg Q6H PRN Administration Nausea And Vomiti
[2021-01-09] MEDS: SODIUM CHLORIDE 0.9% IV 1,000 ML 85 ML IV CONT (08:55)
[2021-01-09] MEDS: FLUTICASONE PROPIONATE 0.05% NA SPR 16 GM BTL (*BKC) 1 SPRAY NASAL (08:55)
[2021-01-09] MEDS: LACTATED RINGERS 1,000 ML 150 ML IV CONT (12:03)
--- NOTE | 2021-01-09 12:14 | WPDANESEPPF ---
Anes - Initial Pre Proc Eval Procedure: Operation Date: 01/09/21 13:15 Proposed Procedures p Esophagogastroduodenoscopy - Ata Seth MD Date/Time: 01/09/21 12:14 Surgeon: Josias Xavier MD Pre Op Diagnosis: chest pain/hyperglycemia Patient Data Age: 45 Gender: F Height: 1.63 m Weight: 126.3 kg Last Vital Signs Temp 36.0 C L 01/09/21 12:02 Pulse 74 01/09/21 12:02 Resp 16 01/09/21 12:02 BP 130/66 01/09/21 12:02 Pulse Ox 99 01/09/21 12:02 Allergies Allergy/AdvReac Type Severity Reaction Status Date / Time No Known Allergies Allergy Verified 01/06/21 23:48 Home Medications Medication Instructions Recorded Confirmed Type fluticasone propionate 50 1 spray INTRANASAL DAILY 07/31/20 01/07/21 History mcg/actuation nasal spray,suspension Laboratory Tests 01/09/21 01/09/21 01/09/21 04:35 04:35 04:36 WBC 4.8 K/mm3 K/mm3 (4.5-10.0) RBC 4.32 M/mm3 M/mm3 (4.2-5.4) Hgb 13.4 g/dL g/dL (12.0-15.0) Hct 40.6 % % (37.0-47.0) MCV 94.0 fl fl (80-100) MCH 31.0 pg pg (26-34) MCHC 33.0 g/dl g/dl (32-36) RDW 12.6 % % (11.5-14.5) Plt Count 242 k/mm3 k/mm3 (150-375) MPV 9.3 fl fl (7.4-10.4) Immature Gran % (Auto) 0.4 % % (0-0.5) Neut % (Auto) 48.7 % % (45.5-73.1) Lymph % (Auto) 37.8 % % (18.3-44.2) [place] % (Auto) 9.2 % H % (2.6-8.5) Eos % (Auto) 3.3 % % (0-4.4) Baso % (Auto) 0.6 % % (0.2-1.2) Lymph # (Auto) 1.81 K/mm3 K/mm3 (0.9-3.2) [place] # (Auto) 0.4 K/mm3 K/mm3 (0.1-0.6) Eos # (Auto) 0.2 K/mm3 K/mm3 (0-0.3) Baso # (Auto) 0.0 K/mm3 K/mm3 (0.0-0.1) Abs Immat Gran (auto) 0.02 K/mm3 K/mm3 (0.00-0.031) Absolute Neuts (auto) 2.3 K/mm3 K/mm3 (1.3-6.7) Absolute Nucleated RBC 0.0 K/mm3 K/mm3 (0.0-0.012) Nucleated RBC % 0.0 % % (0.0-0.2) Sodium 139 mmol/L mmol/L (137-145) Potassium 3.8 mmol/L mmol/L (3.4-5.0) Chloride 106 mmol/L mmol/L (98-107) Carbon Dioxide 25 mmol/L mmol/L (22-30) Anion Gap 8 mmol/L mmol/L (8-16) BUN 10 mg/dL mg/dL (7-17) Creatinine 0.60 mg/dL L mg/dL (0.7-1.0) Estim Creat Clear Calc 131 ml/min ml/min Estimated GFR > 60 (59 - ) Glucose 90 mg/dL mg/dL (65-110) Hemoglobin A1c 5.4 % % (<5.7) Calcium 8.7 mg/dL mg/dL (8.4-10.2) Phosphorus 3.9 mg/dL mg/dL (2.5-4.5) Magnesium 2.1 mg/dL mg/dL (1.6-2.3) Total Bilirubin 1.1 mg/dL mg/dL (0.2-1.3) AST 48 U/L H U/L (14-36) ALT 216 U/L H U/L (4-35) Alkaline Phosphatase 86 U/L U/L (38-126) Total Protein 6.0 g/dL L g/dL (6.3-8.2) Albumin 3.5 g/dL g/dL (3.5-5.1) Patient hx anesthesia problems: none Family hx anesthesia problems: none Results Review: All pre-operative results and documents have been reviewed as part of the pre-operative evaluation. [facility] Past Medical History Medical History Anxiety Gallbladder colic History of use of contraceptive intrauterine device (IUD) Displaced emergency surgery to remove Seasonal allergies Surgical History Surgical History History of surgical removal of ganglion cyst Chest wall 2008 Hx of section X 2 2004 and 2007 Family History Family History Other Asthma Mother Thyroid disorder Father Heart valve replaced History of heart artery stent STEMI (ST elevation myocardial infarction) Hypertension Son Asthma Grandparent Cerebrovascular accident History of blood clots Social H
--- NOTE | 2021-01-09 15:18 | PM.PNGS ---
Progress Note: A&P Assessment and Plan (1) Gallbladder colic: Code(s): K80.20 - Calculus of gallbladder without cholecystitis without obstruction Status: Acute Assessment and Plan: Patient doing well this afternoon. OK to advance diet and discharge from surgical standpoint. Follow up with Dr. Mendoza as outpatient. (2) Obesity, morbid, BMI 40.0-49.9: Code(s): E66.01 - Morbid (severe) obesity due to excess calories Status: Acute (3) Epigastric pain: Code(s): R10.13 - Epigastric pain Status: Acute (4) Intractable nausea and vomiting: Code(s): R11.2 - Nausea with vomiting, unspecified Status: Acute Subjective Subjective Date/Time Seen: 01/09/21 15:18 Interval history: Patient had EGD today. No abnormalities noted. She hasn't had any pain since yesterday. Tolerating clear liquids this afternoon. Exam GI: GI Palp: Yes Soft to palpation, No Tenderness to palpation present (GI), No Guarding due to palpation present (GI) and No Rebound tenderness present Percussion: Yes normal to percussion Auscultation: normal bowel sounds Objective Data Vital Signs Vital Signs: Vital Signs - 24 hr 01/08/21 16:00 01/08/21 17:06 01/08/21 18:00 Temperature 36.1 C L Pulse Rate 83 81 92 Respiratory Rate 21 H Blood Pressure 126/77 Pulse Oximetry 97 01/08/21 19:01 01/08/21 20:00 01/08/21 21:55 Temperature 36.1 C L Pulse Rate 84 87 84 Respiratory Rate 20 Blood Pressure 121/71 Pulse Oximetry 98 01/08/21 23:53 01/09/21 00:00 01/09/21 01:45 Temperature 36.1 C L Pulse Rate 81 85 78 Respiratory Rate 16 Blood Pressure 111/77 Pulse Oximetry 97 01/09/21 03:28 01/09/21 04:00 01/09/21 05:58 Temperature 36.4 C L Pulse Rate 83 78 74 Respiratory Rate 16 Blood Pressure 120/75 Pulse Oximetry 96 01/09/21 08:00 01/09/21 12:02 01/09/21 13:10 Temperature 36.4 C 36.0 C L Pulse Rate 74 74 84 Respiratory Rate 12 16 20 Blood Pressure 134/74 130/66 102/59 L Pulse Oximetry 97 99 97 01/09/21 13:20 01/09/21 13:30 Temperature Pulse Rate 71 73 Respiratory Rate 26 H 22 H Blood Pressure 117/70 114/68 Pulse Oximetry 97 99 Intake/Output Intake/Output: Intake & Output 01/06/21 01/07/21 01/08/21 01/09/21 23:59 23:59 23:59 23:59 Intake Total 2240 2000 1450 Output Total 1050 1850 800 Balance 1190 150 650 Meds/Results Medications: Active Medications Generic Name Dose Route Start Last Admin Trade Name Freq PRN Reason Stop Dose Admin Hydrocodone Bitart/Acetaminophen 1 tab 01/07/21 08:49 01/07/21 16:04 Hydrocodone/Acetaminophen (*Crx) 10-325 Mg Tablet PO 1 tab Q4H PRN Administration Pain Rated 7-10 Hydrocodone Bitart/Acetaminophen 1 tab 01/08/21 07:19 Hydrocodone/Acetaminophen (*Crx) 5-325 Mg Tablet PO Q4H PRN Pain Rated 4-6 Fluticasone Propionate 1 spray 01/07/21 09:00 01/09/21 08:55 Fluticasone Propionate 0.05% Na Spr 16 Gm Btl (*Bkc) NASAL 1 spray DAILY REGINE Administration Sodium Chloride 1,000 mls @ 100 mls/hr 01/07/21 03:00 01/09/21 08:55 Normal Saline Iv IV CONT 85 mls/hr .Q10H REGINE Administration Ondansetron HCl 4 mg 01/07/21 15:51 01/07/21 16:04 Ondansetron Inj 4 Mg/2 Ml Vial IV PUSH 4 mg Q6H PRN Administration Nausea And Vomiting Radiology Results: ITS Impressions Chest X-Ray 01/06/21 23:39 Impression: 1: Subtle bibasilar infiltrates may represent atelectasis or developing pneumonia. Chest CTA 01/07/21 06:49 IMPRESSION: 1. No pulmonary embolism or acute cardiopulmonary abnormality. 2. Cholelithiasis with mild gallbladder distention. Recommend correlation for right upper quadrant tenderness and if present, right upper quadrant ultrasound. Abdomen Ultrasound 01/07/21 09:20 IMPRESSION: Cholelithiasis, moderately distended gallbladder and technologist believed there to be overlying tenderness. No gallbladder wall thickening, pe
[2021-01-10] VITALS (9 sets, daily range): BP systolic 125–153; BP diastolic 80–97; PULSE 66–82; RESP 16–22; TEMP 36.2–36.7; O2SAT 96–99
[2021-01-10] MEDS: SODIUM CHLORIDE 0.9% IV 1,000 ML 85 ML IV CONT (01:45)
[2021-01-10 04:45] LABS: Basophils Percent Auto 0.3 % (0.2-1.2); Eosinophils Absolute Auto 0.2 K/mm3 (0-0.3); Eosinophils Percent Auto 2.7 % (0-4.4); Hematocrit 41.4 % (37.0-47.0); Hemoglobin 13.8 g/dL (12.0-15.0); Immature Granulocyte Absolute 0.01 K/mm3 (0.00-0.031); Immature Granulocyte Percent A 0.2 % (0-0.5); Lymphocytes Absolute Auto 1.99 K/mm3 (0.9-3.2); Lymphocytes Percent Auto 33.4 % (18.3-44.2); Mean Corpuscular HGB Conc 33.3 g/dl (32-36); Mean Corpuscular Hemoglobin 30.7 pg (26-34); Mean Corpuscular Volume 92.2 fl (80-100); Mean Platelet Volume 8.8 fl (7.4-10.4); Monocytes Absolute Auto 0.5 K/mm3 (0.1-0.6); Monocytes Percent Auto 8.4 % (2.6-8.5); Neutrophils Absolute Auto 3.3 K/mm3 (1.3-6.7); Platelet Count Result 244 k/mm3 (150-375); Red Blood Count 4.49 M/mm3 (4.2-5.4); Red Cell Distribution Width 12.2 % (11.5-14.5)
[2021-01-10 04:56] LABS: Alanine Aminotransferase 162 U/L (4-35); Albumin Level 3.7 g/dL (3.5-5.1); Alkaline Phosphatase 81 U/L (38-126); Anion Gap 10 mmol/L (8-16); Aspartate Amino Transferase 36 U/L (14-36); Bilirubin,Total 1.1 mg/dL (0.2-1.3); Blood Urea Nitrogen 9 mg/dL (7-17); Calcium 8.6 mg/dL (8.4-10.2); Carbon Dioxide 24 mmol/L (22-30); Chloride 105 mmol/L (98-107); Estimated CRCL calculation 131 ml/min; Estimated Glomerular Filt Rate > 60; Glucose 96 mg/dL (65-110); Phosphorus 3.9 mg/dL (2.5-4.5); Potassium 3.6 mmol/L (3.4-5.0); Sodium 139 mmol/L (137-145)
--- NOTE | 2021-01-10 14:10 | PM.DS ---
DS: Admitting Diagnosis Discharge Date 01/10/2021 Admitting Diagnosis Cholelithiasis DS: Discharge Diagnosis Discharge Diagnosis (1) Gallbladder colic: Code(s): K80.20 - Calculus of gallbladder without cholecystitis without obstruction Status: Acute (2) Obesity, morbid, BMI 40.0-49.9: Code(s): E66.01 - Morbid (severe) obesity due to excess calories Status: Acute (3) Intractable nausea and vomiting: Code(s): R11.2 - Nausea with vomiting, unspecified Status: Acute (4) Epigastric pain: Code(s): R10.13 - Epigastric pain Status: Acute (5) Transaminitis: Code(s): R74.01 - Elevation of levels of liver transaminase levels Status: Acute (6) Cholelithiasis: Code(s): K80.20 - Calculus of gallbladder without cholecystitis without obstruction Status: Acute DS: Summary Hospital Course Reason for hospitalization: Abdominal pain intractable nausea and vomiting Hospital Course: 45-year-old female with past medical history significant for asthma, obesity and peptic ulcer disease presented with abdominal pain and intractable nausea and vomiting. He was managed as a case of cholelithiasis without concerns for cholecystitis. For this purpose she received ultrasound abdomen, MRCP, HIDA scan. The results of which are as follows: HIDA scan: Normal gallbladder uptake with diminished gallbladder ejection fraction. Low GBEF is associated with gallbladder dysfunction, although not specific for acute or chronic cholecystitis. Abdominal MRI with MRCP: 1. Cholelithiasis and mild gallbladder distention without additional findings of cholecystitis. 2. No biliary dilatation, choledocholithiasis or bile duct stricture. Abdominal ultrasound??: Cholelithiasis, moderately distended gallbladder and technologist believed there to be overlying tenderness. No gallbladder wall thickening, pericholecystic fluid or biliary duct dilation. If acute or chronic cholecystitis is clinical possibility, consider surgical consult, HIDA scan. EGD was also performed in view the prior history of peptic ulcer disease and her current symptoms of intractable nausea and vomiting. EGD results revealed no concerns for esophagitis, Fernandes's esophagus, paresis. There were no ulcers of masses noted in the stomach and no gastritis was noted either. Biopsies were obtained for H pylori results of which are still pending duodenum was also visualized and did not appear to have any ulcers or masses. Biopsies were obtained for celiac sprue. During her hospital stay she was also seen by GI and General surgery. She is to follow up with General surgery for outpatient cholecystectomy as recommended by General surgery. She has been asked to make an appointment with General surgery. She is being discharged in stable condition with p.o. Zofran as needed. Status at Discharge Overall status at discharge: patient is back to baseline Time Spent with Patient Time attestation: Total time spent providing and/or coordinating discharge services:<30 minuutes Time spent: Less than 30 minutes Exam Narrative: Const: General: comfortable and no acute distress Other: obese HENMT: General nose exam: Normal nares present Eyes: General: appearance normal, both eyes and all related structures Neck: Neck: no JVD Resp: Effort & Inspection: normal respiratory effort Auscultation: clear to auscultation bilaterally Cardio: Rate: regular rate Rhythm: regular rhythm GI: Inspection: non-distended GI Palp: Yes Soft to palpation and Yes Tenderness to palpation present (GI) (mild ttp in ruq, no rebound) Auscultation: normal bowel sounds Skin: General skin exam: normal color Neuro: Speech: normal speech Motor exam (neuro): Normal motor muscle tone present throughout Extrem: General: normal to inspection Psych: Mental Status: mental status grossly normal DS: Data Data Completed and Pending Pending studies at discharge: Pending
== END 2021-01-10 14:45 | disposition home or self-care (01) | DRG 445 ==
LOC: ANHED 01-07 01:05 → ANHIMU 01-07 02:08
PROVIDERS: Internal Medicine Gastroenterology; Admitting Provider Internal Medicine; Emergency Provider Emergency Medicine; Visit Provider Internal Medicine
PROC: 0DJ08ZZ Inspection of Upper Intestinal Tract, Via Natural or Artificial Opening Endoscopic (ICD-10-PCS; CPT 43235; principal; 2021-01-09 13:15)
DX: K80.20 Calculus of gallbladder without cholecystitis without obstruction (principal); Z68.42 Body mass index [BMI] 45.0-49.9, adult; E66.01 Morbid (severe) obesity due to excess calories; R73.9 Hyperglycemia, unspecified; J45.909 Unspecified asthma, uncomplicated; F41.9 Anxiety disorder, unspecified; Z87.11 Personal history of peptic ulcer disease
CPT/HCPCS: 36415; 71046; 71275; 74183; 76376; 76705; 78226; 80048; 80053; 80074; 81025; 83036; 83690; 83735; 84100; 84484; 85025; 85380; 85610; 85730; 87081; 88305; 93005; 96361; 96374; 96376; 99285; A9270; A9537; A9577; G0378; J2001; J2405; J2704; J7030; J7120; Q9967

== ENCOUNTER 2021-01-26 15:34 | Outpatient (CLI) | payer BC, SELFPAY ==
[2021-01-26 16:45] LABS: Alanine Aminotransferase 56 U/L (4-35); Albumin Level 4.7 g/dL (3.5-5.1); Alkaline Phosphatase 77 U/L (38-126); Amylase 68 U/L (30-110); Anion Gap 9 mmol/L (8-16); Aspartate Amino Transferase 31 U/L (14-36); Bilirubin,Total 0.9 mg/dL (0.2-1.3); Blood Urea Nitrogen 15 mg/dL (7-17); Calcium 9.5 mg/dL (8.4-10.2); Carbon Dioxide 29 mmol/L (22-30); Chloride 103 mmol/L (98-107); Estimated Glomerular Filt Rate > 60; Glucose 101 mg/dL (65-110); Lipase 51 U/L (23-300); Potassium 3.9 mmol/L (3.4-5.0); Sodium 141 mmol/L (137-145)
== END 2021-01-26 15:35 | disposition home or self-care (01) ==
LOC: ANHSURGERY 15:37
PROVIDERS: Visit Provider Surgery
DX: Z01.818 Encounter for other preprocedural examination (principal); K80.10 Calculus of gallbladder with chronic cholecystitis without obstruction
CPT/HCPCS: 36415; 80053; 82150; 82248; 83690

== ENCOUNTER 2021-02-02 02:01 | Day surgery (SDC) | payer BC, SELFPAY ==
[2021-01-26 15:00] VITALS: BMI 40.9
--- NOTE | 2021-01-26 15:07 | PC.NURSE ---
Report to the Outpatient Waiting Room, entrance under the green pavilion located off [facility], at time _0600__ on date 02-02-21_. OR Time: __729__. - You and your visitor will be asked a series of questions to screen for COVID 19 for your protection. - A mask is required within the hospital. - Only one visitor is allowed at this time. Patient visitors will be guided where to wait when not with patient. Preoperative COVID Testing Requirements: No COVID Test needed if: (proof is required; if not received patient will have Rapid Test prior to entry) - Patient has received COVID Vaccine at least 14 days prior to procedure date or - Patient has positive COVID test result within last 90 days of surgery date. COVID Test needed if above criteria is not met If not COVID vaccinated a COVID test must be conducted within 72 hours of surgery and patient is asked to isolate self from time of testing until procedure. You will go to the [facility] [facility] for your COVID testing. The [employer] [facility] site is located at the corner of [address] [facility]. You will only be called if COVID results are positive and your surgeon may reschedule your elective surgery date. Patients may have clear liquids (water, carbonated beverages, clear teas, apple juice) until 3 hours prior to surgery with a maximum of 20 ounces. - No food from midnight until time of surgery - Infants may have breast milk until 4 hours before surgery, formula 6 hours prior to surgery. - Children will be allowed to drink immediately following surgery. If applicable, please bring a bottle or sippy cup to assist with drinking. Juice, water, soda, and popsicles are readily available. For infants on formula, please bring formula the day of surgery. Pacifiers are allowed. Take the following medications with a SIP of water the morning of surgery: __Flonase and zofran if needed. Medications to discontinue per physician Date to take last dose Please no make-up, nail romansh, hairspray, perfume, deodorant, or body powder the day of surgery. No jewelry (including any body piercings) or valuables the day of surgery, leave them at home. Please take a shower or bath the morning of, surgery with an Hebiclense. Wear comfortable, loose fitting clothing. Children are encouraged to wear pajamas. - Jewelry must be removed prior to entering the operating room. Rings and piercings that are not removed may be cut off. - The hospital will not accept responsibility for valuables. - Please leave all valuables, including medications, at home the day of surgery. If you are going home after surgery, a licensed class a regional truck driver must drive you home. - NO public transportation without another adult. - We recommend that an adult stay with you for 24 hours following discharge. - We also recommend that you do not drive, make important decision, drink alcoholic beverages, or take any drugs that were not prescribed by your health care provider for at least 24 hours after your discharge time. For Pediatric surgeries, we recommend two adults accompany the child home (only one inside the building at this time). Follow any additional instructions given to you from your surgeon. Telephone instructions given to _Patient__and asked if any additional questions and then verbalized understanding. Patient advised to call surgeon office or pre surgery nurse liaison [phone] if any additional questions.
[2021-02-02] VITALS (13 sets, daily range): BP systolic 103–132; BP diastolic 57–85; PULSE 54–98; RESP 12–20; TEMP 36–36.7; O2SAT 94–100
--- NOTE | ~2021-02-02 | XR_ITS ---
EXAMINATION: XR cholangiogram surg 1st inj DATE: 02/02/2021 09:47 INDICATION: Cholelithiasis. TECHNIQUE: 76 fluoroscopic images of the right upper quadrant were obtained during intraoperative cho langiography performed by the surgeon. I was not present in the operating room. Fluoroscopy exposure time was 13 seconds. COMPARISON: MRCP 01/08/2021 FINDINGS: There is a catheter in the cystic duct. There is normal contrast opacification of the bilia ry tree. Contrast passes to the duodenum. No choledocholithiasis. IMPRESSION: 1. Normal intraoperative cholangiogram. Reviewed, dictated and finalized at location B. REGULATOR
[2021-02-02] MEDS: ACETAMINOPHEN 500 MG TABLET 1000 MG PO (06:56)
--- NOTE | 2021-02-02 06:56 | P.PNAN_ITS ---
Anes - Initial Pre Proc Eval Procedure: Operation Date: 02/02/21 08:30 Proposed Procedures p Laparoscopic Cholecystectomy with Possible Intraoperative Cholangiogram Possible Open - Venkat Mendoza MD Date/Time: 02/02/21 06:56 Surgeon: Venkat Mendoza MD Pre Op Diagnosis: acute cholecystitis, cholelithiasis Patient Data Age: 46 Gender: F Height: 1.63 m Weight: 108.2 kg Allergies Allergy/AdvReac Type Severity Reaction Status Date / Time No Known Allergies Allergy Verified 01/26/21 15:00 Home Medications Medication Instructions Recorded Confirmed Type fluticasone propionate 50 1 spray INTRANASAL DAILY 07/31/20 02/02/21 History mcg/actuation nasal spray,suspension ondansetron 4 mg PO Q8H PRN #30 tablet 01/10/21 02/02/21 Rx Patient hx anesthesia problems: none Family hx anesthesia problems: none Results Review: All pre-operative results and documents have been reviewed as part of the pre-operative evaluation. [facility] Past Medical History Medical History Anxiety Cholelithiasis Gallbladder colic History of use of contraceptive intrauterine device (IUD) Displaced emergency surgery to remove Seasonal allergies Surgical History Surgical History History of surgical removal of ganglion cyst Chest wall 2008 Hx of section X 2 2004 and 2007 Family History Family History Other Asthma Mother Thyroid disorder Father Heart valve replaced History of heart artery stent STEMI (ST elevation myocardial infarction) Hypertension Son Asthma Grandparent Cerebrovascular accident History of blood clots Social History Social History Smoking status: Never smoker Second hand tobacco smoke exposure: Yes Alcohol intake: never Substance use: never Living arrangements: with family Spiritual care concerns: No Anes - Eval Final PreProcedure Day of Procedure 02/02/21 06:56 Patient weight: morbidly obese Heart: regular rate and rhythm Lungs: clear to auscultation Airway: Mallampati scale class II Neurological: alert and oriented Last oral intake: >/= 8 hours ASA classification: III Emergent: no Anesthetic plan: proceed Anesthesia type and monitoring: general ETT and standard monitoring Results Review: All pre-operative results and documents have been reviewed as part of the pre-operative evaluation. Informed Consent: The patient's anesthetic plan and its attendant risks and benefits were discussed with the patient/family/POA. Questions were solicited and answers provided to the satisfaction of the patient/family/POA.
[2021-02-02] MEDS: LACTATED RINGERS 1,000 ML 30 ML IV CONT ×3 (07:15→11:32)
[2021-02-02] MEDS: KETOROLAC 15 MG/ML VIAL (*BKC) IV PUSH (07:16)
--- NOTE | 2021-02-02 08:21 | P.HPUP_ITS ---
History and Physical Update Update Date/Time: 02/02/21 08:21 History and Physical has been reviewed, including an updated exam of the patient. There are changes in the patient's condition. The patient is still having occasional postprandial right upper quadrant and epigastric abdominal p ain. Most recent episode was 2 days ago. All labs from 01/26 2021 as a preop are normal except for slight elevation of AST. Risks, benefits, and alternatives have been discussed and questions answered. Patient agrees to proceed with procedure.
[2021-02-02] MEDS: ceFAZolin 2 GM/D5W 50 ML 2 GM/50 ML BAG IVPB (08:37)
[2021-02-02] MEDS: LIDO 2%/EPINEPHRINE 1:100,000 20 ML VIAL INFILTRATE (10:21)
--- NOTE | 2021-02-02 10:42 | W.PM.PROC2 ---
Procedure Note - Detailed Date of Procedure 02/02/21 Pre-op Diagnosis acute cholecystitis, cholelithiasis Post-op Diagnosis same Procedure Performed Laparoscopic cholecystectomy with intraoperative cholangiogram Surgeon Venkat Mendoza MD [employer] Priming Tool Setter Caryn FERGUSON.OR Soil Specialist Anesthesia general Indications Recurrent right upper quadrant abdominal pain with cholelithiasis. Findings Non inflamed gallbladder with palpable stones within upon removal Unremarkable/normal intraoperative cholangiogram. Description of Procedure Procedure Details: Patient was seen preoperatively in the holding area and risks, benefits and alternatives confirmed. Patient was taken to the operating room and general anesthesia was induced. A time out was then preformed with the surgery team confirming patient and site of surgery. The abdomen was prepped and draped in the usual sterile fashion. Incision was made just below the umbilicus. Two stay sutures of O- Vicryl were used to elevate the mid-line fascia beneath the umbilicus and a small incision was made under direct vision. The peritoneum was entered. The 12 mm Vance cannula was introduced under direct vision. First under low flow and then under high flow the abdomen was insufflated with carbon dioxide never exceeding a pressure of 14. Three 5 mm trocars were then introduced under direct vision. The following trocars were introduced under direct vision: a 5 mm in the epigastrium and two 5 mm trocars along the right costal margin. There were significant adhesions of the omentum to the underside of the gallbladder and these were taken down with blunt and sharp dissection. Bovie cautery was used for hemostasis. The gall bladder was grasped and the cystic duct and artery were dissected free and I carefully identified a window of safety with only two other structures in the area being the cystic duct and the cystic artery. I then used a 5 mm endo-clip chemistry quality control analyst to place 2 clips on the patient's side 1 on the gallbladder side on the cystic artery and just 1 clip on the gallbladder side of the cystic duct. A small hole was made in the cystic duct with endoshears and a cholagio-cath introduced. This was held in place with a single 5 mm clip. A cholangiogram was obtained revealing free flow into the cystic duct, common bile duct, common hepatic, right and left hepatic ducts with free flow into the duodenum with no filling defects in the intra nor extrahepatic biliary tree and no dilation. The catheter was removed and the cystic duct was clipped with a 5 mm endoclip-chemistry quality control analyst placing 2 clips on the patient's side of the cystic duct. The cystic duct was then transected. The cystic artery was also transected at this point. The gall bladder was removed using electrocautery and then removed using a large 10 mm grasper via the umbilical incision. The trocars were removed visualizing hemostasis and the remaining gas evacuated. The large trocar site at the umbilicus was closed with an 0 vicryl figure of 8 suture with one extra simple suture at the umbilical level. The 2 stay sutures mentioned above on either side of the fascia were also tied together to help approximate this midline fascia. Further local anesthetic was placed into each incision for postop pain control. The skin incisions were closed with subcuticular suture of 4-0 Monocryl. Surgical glue then was applied to all the incisions. Patient tolerated the procedure well was taken to the recovery room in good condition Implants none Estimated Blood Loss -20.0 Drains No Packing No Pathology yes (Gallbladder) Complications No immediate complications Condition stable Disposition PACU
[2021-02-02] MEDS: fentaNYL CITRATE INJ (*CRX) 100 MCG/2 ML VIAL 25 MCG IV PUSH ×4 (10:50→11:46)
[2021-02-02] MEDS: ONDANSETRON INJ 4 MG/2 ML VIAL IV PUSH (11:01)
[2021-02-02] MEDS: diphenhydrAMINE HCl INJ 50 MG/ML VIAL 25 MG IV PUSH (11:25)
[2021-02-02] MEDS: SCOPOLAMINE 1.5 MG PATCH TRANSDERM (11:26)
== END 2021-02-02 13:01 | disposition home or self-care (01) ==
PROVIDERS: Visit Provider Surgery
PROC: 0FT44ZZ Resection of Gallbladder, Percutaneous Endoscopic Approach (ICD-10-PCS; CPT 47562; principal; 2021-02-02 08:30)
DX: K80.10 Calculus of gallbladder with chronic cholecystitis without obstruction (principal); E66.01 Morbid (severe) obesity due to excess calories; Z68.41 Body mass index [BMI] 40.0-44.9, adult
CPT/HCPCS: 47563; 74300; 88304; A9270; J0330; J0690; J1100; J1170; J1200; J1885; J2250; J2405; J2704; J2710; J3010; J7120; Q9966

== ENCOUNTER 2021-10-17 07:44 | Outpatient (CLI) | payer BC, SELFPAY ==
--- NOTE | ~2021-10-17 | MM_ITS ---
EXAMINATION: MM screening pippa BI w josr HISTORY: Screening mammogram TECHNIQUE: Craniocaudal and mediolateral oblique 3-D tomosynthesis images were obtained and synthetic 2-D images were generated. CAD analysis was submitted and interpreted. COMPARISON: None, baseline BREAST PARENCHYMAL COMPOSITION: There are scattered areas of fibroglandular density. FINDINGS: RIGHT BREAST: There is no suspicious mass, calcification, or architectural distortion to suggest kellie gnancy. LEFT BREAST: There is focal asymmetry in the middle/posterior third of the upper-outer quadrant of th e breast. IMPRESSION: 1. Left breast focal asymmetry. 2. Additional mammographic views and possible breast ultrasound are recommended. BI-RADS Category 0: Incomplete: Needs additional imaging evaluation. Reviewed, dictated and finalized at location A. IMPRESSION: 1. Left breast focal asymmetry. 2. Additional mammographic views and possible breast ultrasound are recommended . BI-RADS Category 0: Incomplete: Needs additional imaging evaluation.
== END 2021-10-17 07:45 | disposition home or self-care (01) ==
LOC: ANHIMG 07:45
PROVIDERS: PCP Family Medicine; Visit Provider Obstetrics & Gynecology
DX: Z12.31 Encounter for screening mammogram for malignant neoplasm of breast (principal); R92.8 Other abnormal and inconclusive findings on diagnostic imaging of breast
CPT/HCPCS: 77063; 77067

== ENCOUNTER 2021-11-04 11:30 | Outpatient (CLI) | payer BC, SELFPAY ==
--- NOTE | ~2021-11-04 | MMUS_ITS ---
EXAMINATION: MM diagnostic pippa LT w josr, US breast LT limited HISTORY: Follow-up left breast asymmetry TECHNIQUE: Additional 3-D tomosynthesis images of the left breast were performed and synthetic 2-D im ages were generated. CAD analysis was submitted and interpreted. High resolution Limited left breast ultrasound was performed. COMPARISON: 10/17/2021 BREAST PARENCHYMAL COMPOSITION: Breast composed of scattered areas of fibroglandular density FINDINGS: MAMMOGRAPHIC FINDINGS: Focal asymmetries in the upper outer quadrant of the left breast are less dense with spot compression and mediolateral views. No discrete mass or architectural distortion. No suspicious calcifications. ULTRASOUND: Limited left breast ultrasound: Normal heterogeneous echotexture without focal solid or cystic mass. IMPRESSION: 1. No evidence for malignancy in the left breast. 2. Routine yearly screening mammogram and regular clinical breast examination are recommended. BI-RADS Category 1: Negative Reviewed, dictated and finalized at location A. IMPRESSION: 1. No evidence for malignancy in the left breast. 2. Routine yearly screening mammogram and regular clinical breast examination a re recommended. BI-RADS Category 1: Negative
== END 2021-11-04 11:31 | disposition home or self-care (01) ==
PROVIDERS: PCP Family Medicine; Visit Provider Obstetrics & Gynecology
DX: R92.8 Other abnormal and inconclusive findings on diagnostic imaging of breast (principal)
CPT/HCPCS: 76642; 77061; 77065; G0279

== ENCOUNTER 2023-06-28 02:00 | Day surgery (SDC) | payer BC, SELFPAY ==
[2023-06-23 13:46] VITALS: BMI 36.0
[2023-06-28 09:42] VITALS: BP 145/80; PULSE 65; RESP 16; TEMP 36.2; O2SAT 100
[2023-06-28] MEDS: LACTATED RINGERS 1,000 ML 150 ML IV CONT (09:52)
--- NOTE | 2023-06-28 10:01 | WPDANESEPPF ---
Anes - Initial Pre Proc Eval Procedure: Operation Date: 06/28/23 10:30 Proposed Procedures p Screening Colonoscopy - Logan Lyon DO Date/Time: 06/28/23 10:01 Surgeon: Logan Lyon DO Pre Op Diagnosis: Screening neoplasm Patient Data Age: 48 Gender: F Height: 1.63 m Weight: 100.7 kg Last Vital Signs Temp 97.1 F L 06/28/23 09:42 Pulse 65 06/28/23 09:42 Resp 16 06/28/23 09:42 BP 145/80 H 06/28/23 09:42 Pulse Ox 100 06/28/23 09:42 O2 Del Method Room Air 06/28/23 09:42 Allergies Allergy/AdvReac Type Severity Reaction Status Date / Time No Known Allergies Allergy Verified 06/28/23 09:40 Home Medications Medication Instructions Recorded Confirmed Type fluticasone propionate 50 1 spray intranasal DAILY PRN 07/31/20 06/28/23 History mcg/actuation nasal allergies spray,suspension (Flonase Allergy Relief) paroxetine HCl 10 mg tablet 10 mg PO DAILY #30 tabs 06/08/23 06/28/23 Rx multivit with minerals-iron 18 1 tablet PO DAILY 06/23/23 06/28/23 History mg-folic ac 400 mcg-vit K 25 mcg tablet (One Daily Women's) Patient hx anesthesia problems: none Family hx anesthesia problems: none Results Review: All pre-operative results and documents have been reviewed as part of the pre-operative evaluation. PMFSH Past Medical History Medical History Anxiety Cholelithiasis Gallbladder colic History of use of contraceptive intrauterine device (IUD) Displaced emergency surgery to remove Seasonal allergies Surgical History Surgical History History of surgical removal of ganglion cyst Chest wall 2007 Hx laparoscopic cholecystectomy 02/02/21 Hx of section X 2 2004 and 2007 Family History Family History Other Asthma Mother Thyroid disorder Father Heart valve replaced History of heart artery stent STEMI (ST elevation myocardial infarction) Hypertension Son Asthma Grandparent Cerebrovascular accident History of blood clots Social History Social History Smoking status: Never smoker Second hand tobacco smoke exposure: Yes Alcohol intake: current Substance use: never Substance use type: does not use Living arrangements: with family Spiritual care concerns: No Anes - Eval Final PreProcedure Day of Procedure 06/28/23 10:01 Patient weight: obese Heart: regular rate and rhythm Lungs: clear to auscultation Airway: Mallampati scale class II Neurological: alert and oriented Last oral intake: >/= 8 hours ASA classification: III Emergent: no Anesthetic plan: proceed Anesthesia type and monitoring: general GIVS and standard monitoring Results Review: All pre-operative results and documents have been reviewed as part of the pre-operative evaluation. Informed Consent: The patient's anesthetic plan and its attendant risks and benefits were discussed with the patient/family/POA. Questions were solicited and answers provided to the satisfaction of the patient/family/POA.
--- NOTE | 2023-06-28 10:45 | PM.IMHP ---
H&P: HPI History of Present Illness Date/Time: 06/28/23 10:45 Chief Complaint: Screening for colorectal cancer Narrative: This is a 48-year-old woman who presents for colonoscopy. She has never had a colonoscopy before. She denies any family history of colon cancer. She denies any hematochezia or melena. Review of Systems Review of Systems: All systems reviewed & are unremarkable except as noted in HPI and below Constitutional: Constitutional: Denies chills, Denies fever(s), Denies headache(s) and Denies weight loss Eyes: Eyes: Denies change in vision ENT: Denies dizziness, Denies headache(s), Denies neck mass and Denies throat swelling Cardiovascular: Cardiovascular: Denies chest pain, Denies lightheadedness and Denies dyspnea Respiratory: Respiratory: Denies cough, Denies dyspnea and Denies wheezing Gastrointestinal: Gastrointestinal: Denies abdominal pain, Denies change in bowel habits, Denies nausea and Denies vomiting Genitourinary: Genitourinary: Denies hematuria and Denies dysuria Musculoskeletal: Musculoskeletal: Reports as per HPI Integumentary/Breasts: Skin/Breast: Reports as per HPI Neurologic: Denies dizziness and Denies headache(s) Allergic/Immunologic: Allergic/Immunologic: Denies throat swelling and Denies wheezing PMFSH Past Medical History Medical History Anxiety Cholelithiasis Gallbladder colic History of use of contraceptive intrauterine device (IUD) Displaced emergency surgery to remove Seasonal allergies Surgical History Surgical History History of surgical removal of ganglion cyst Chest wall 2008 Hx laparoscopic cholecystectomy 02/02/21 Hx of section X 2 2004 and 2007 Family History Family History Other Asthma Mother Thyroid disorder Father Heart valve replaced History of heart artery stent STEMI (ST elevation myocardial infarction) Hypertension Son Asthma Grandparent Cerebrovascular accident History of blood clots Social History Social History Smoking status: Never smoker Second hand tobacco smoke exposure: Yes Alcohol intake: current Substance use: never Substance use type: does not use Living arrangements: with family Spiritual care concerns: No Meds Home Medications and Allergies Home Medications Medication Instructions Recorded Confirmed Type fluticasone propionate 50 1 spray intranasal DAILY PRN 07/31/20 06/28/23 History mcg/actuation nasal allergies spray,suspension (Flonase Allergy Relief) paroxetine HCl 10 mg tablet 10 mg PO DAILY #30 tabs 06/08/23 06/28/23 Rx multivit with minerals-iron 18 1 tablet PO DAILY 06/23/23 06/28/23 History mg-folic ac 400 mcg-vit K 25 mcg tablet (One Daily Women's) Allergies Allergy/AdvReac Type Severity Reaction Status Date / Time No Known Allergies Allergy Verified 06/28/23 09:40 Vital Signs Vital Signs - 24 hr 06/28/23 09:42 Temperature 36.2 C L Pulse Rate 65 Respiratory Rate 16 Blood Pressure 145/80 H Pulse Oximetry 100 Oxygen Delivery Room Air Exam Const: General: no acute distress and alert Orientation/consciousness: patient oriented x3 HENMT: Head: normocephalic and atraumatic Ears: hearing grossly normal bilaterally Face/Nose/Sinus: Normal nares present Mouth: Yes Normal oral and palatal mucosa present Eyes: Periorbital: periorbital findings normal Sclera: sclerae normal EOM: EOMs intact bilaterally Neck: Neck: normal visual inspection, no lymphadenopathy and trachea midline Chest: Chest palpation & inspection: normal inspection of the chest Resp: Effort & Inspection: normal respiratory effort Auscultation: clear to auscultation bilaterally Cardio: Jugular venous distension: no JVD Rate: regular r
[2023-06-28 11:18] VITALS: BP 129/87; PULSE 75; RESP 24; O2SAT 100
[2023-06-28 11:28] VITALS: BP 137/85; PULSE 65; RESP 16; O2SAT 100
[2023-06-28 11:38] VITALS: BP 130/84; PULSE 61; RESP 16; O2SAT 100
== END 2023-06-28 11:46 | disposition home or self-care (01) ==
PROVIDERS: PCP Family Medicine; Visit Provider Surgery
PROC: 0DJD8ZZ Inspection of Lower Intestinal Tract, Via Natural or Artificial Opening Endoscopic (ICD-10-PCS; CPT 45378; principal; 2023-06-28 10:30)
DX: Z12.11 Encounter for screening for malignant neoplasm of colon (principal); K62.1 Rectal polyp; K57.30 Diverticulosis of large intestine without perforation or abscess without bleeding; K64.8 Other hemorrhoids; F41.9 Anxiety disorder, unspecified; E66.9 Obesity, unspecified; Z68.38 Body mass index [BMI] 38.0-38.9, adult
CPT/HCPCS: 45380; 88305; J1596; J2704; J7120

== ENCOUNTER 2024-07-24 07:08 | Outpatient (CLI) | payer BC, SELFPAY ==
--- NOTE | ~2024-07-24 | MM_ITS ---
EXAMINATION: MM screening pippa BI w josr HISTORY: Screening mammogram TECHNIQUE: Craniocaudal and mediolateral oblique 3-D tomosynthesis images were obtained and synthetic 2-D images were generated. CAD analysis was submitted and interpreted. COMPARISON: 10/17/2021 BREAST PARENCHYMAL COMPOSITION:Not Dense. The breasts are almost entirely fatty FINDINGS: No suspicious mass, calcification, or architectural distortion are identified in either gómez ast to suggest malignancy. There has been no suspicious interval change. IMPRESSION: No mammographic evidence of malignancy. Recommend routine screening mammography in one year. BI-RADS Category 1: Negative Reviewed, dictated and finalized at location .
--- OUTSIDE RECORDS SUMMARY | 2024-07-24 07:11 | XMS_ITS | Clinical Summary ---
Author Organization [facility] Address [address] [place] [id number] Care Team Providers Care Net Developer With [employer] Name Role Phone Unavailable Primary Care Provider Unavailabl e Social History Tobacco Use Types Packs/Day Years Used Date Smoking Tobacco: Never Assessed Comments Unknown Sex and Gender Information Value Date Recorded Sex Assigned at Not on file Legal Sex Female 5:18 PM CDT Gender Identity Not on file Sexual Orientation Not on file Plan of Treatment Health Maintenance Due Date Last Done Comments Cervical Cancer Screening Pa p Smear (Age 30 to 64) Every 3 Years 1974 Colorectal Cancer Screening Colonoscopy (10 Years) 1974 Annual Physical 1977 Hepatitis C 01/20/1992 DTaP, Tdap and Td Vaccines ( 1 - Tdap) 1993 Hepatitis B Vaccines (1 of 3 - 19+ 3-dose series) 1993 Cervical Cancer Screening Pa p with HPV Testing (Age 30 to 64) Every 5 Years 01/20/2004 Cervical Cancer Screening with HPV 01/20/2004 Mammogram Screening 2014 COVID-19 Vaccine (2023-2 5 season) 2023 Pneumococcal Vaccine: 50+ Ye ars (1 of 1 - PCV) 01/20/2024 Zoster Vaccines (1 of 2) 01/20/2024 Meningococcal B Vaccine Aged Out No l onger eligible based on patient's age to complete this topic Meningococcal Vaccine Aged Out No devante malou eligible based on patient's age to complete this topic RSV Immunizations Under 20 Months Aged Out No longer eligible based on patient's age to complete this topic
--- OUTSIDE RECORDS SUMMARY | 2024-07-24 07:11 | XMS_ITS | Clinical Summary ---
Author Organization [facility] [employer] Address [address] [facility] [place] [address] Care Team Providers Care Sheather Name Role Phone Nusrat Harding MD Primary Care Provider [phone] Source Comments [facility] [facility],non-owned Affiliates and Associated Physician Practices is amultiple site organization consisting of ambulatory clinics and hospital sitesin [place], [place], [place] and [place]. This disclosure is being madepursuant to the Care Everywhere program and may not contain all information available regarding this patient. Last updated 17.[facility] [facility] Allergies No known active allergies Medications * Be aware that medications may not be up to date on this document. Alwaysverify current medications with the patient. Lexapro 20 MG tablet 03/14/2023 Active traZODone (Desyrel) 100 MG tablet 04/04/2023 Active Capsaicin-Menth ol (SALONPAS GEL-PATCH HOT EX) Active diclofenac sodium (Voltaren) 1 % gel Apply to affected area 4 times daily Active meloxicam (Mobic) 15 MG tablet Take 1 (one) tablet by mouth once daily 30 tablet 3 04/05/2024 Active Active Problems Problem Noted Date Diagnosed Date Hip pain 04/04/2023 Social History Tobacco Use Types Packs/Day Years Used Date Smoking Tobacco: Never Smokeless Tobacco: Never Tobacco Cessation:Counseling Given: Not Answered Alcohol Use Standard Drinks/Week Comments Yes 0 (1 standard drink = 0.6 oz pur e alcohol) PHQ-2 Answer Date Recorded Patient Health Questionnaire-2 Score 0 04/04/2024 Comments Unknown Sex and Gender Information Value Date Recorded Sex Assigned at Not on file Legal Sex Female 5:47 PM CDT Gender Identity Not on file Sexual Orientation Not on file Last Filed Vital Signs Vital Sign Reading Time Taken Comments Blood Pressure - - Pulse - - Temperature - - Respiratory Rate - - Oxygen Saturation - - Inhaled Oxygen Concentration - - Weight 101.6 kg (224 lb) 04/05/2024 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 Height 162.6 cm (5' 4 ) 04/05/2024 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 Body Mass Index 38.45 04/05/2024 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 Plan of Treatment Health Maintenance Due Date Last Done Comments COLOGUARD (AGES 45-75) - COL ON CA SCREENING 1974 COLON MONITORING 1974 COLONOSCOPY - COLON CA SCREENING 1974 CT COLONOGRAPHY - COLON CA SCREENING 1974 Colorectal Cancer Screening 1974 FIT - COLON CA SCREENING 1974 FLEX SIG - COLON CA SCREENING 1974 LIPID TESTING 1974 MAMMOGRAM 1974 PAP SMEAR 1974 HIV SCREENING 1989 HEPATITIS C SCREENING 01/15/1992 DTAP/TDAP/TD VACCINES (1 - Tdap) 1993 HEPATITIS B VACCINE (1 of 3 - 19+ 3-dose series) 1993 COVID-19 VACCINE ( - 2023-2 5 season) 2023 PNEUMOCOCCAL VACCINE 50+ (1 of 1 - PCV) 01/20/2024 ZOSTER VACCINE (1 of 2) 01/20/2024 SCREENING FOR DIABETES 04/05/2024 INFLUENZA VACCINE (Season Ended) 2024 DEPRESSION SCREENING Completed 04/05/2024 HIB VACCINE Aged Out No longer eligi ble based on patient's age to complete this topic HPV VACCINE Aged Out No longer eligi ble based on patient's age to complete this topic MENINGOCOCCAL (Group B) VACC INE SHARED DECISION-MAKING Aged Out No longer eligibl e based on patient's age to complete this topic MENINGOCOCCAL GROUPS A/C/Y/W VACCINE Aged Out No longer eligible b ased on patient's age to complete this topic Insurance ANTHEM * Guarantor: SUSANNA FELTON Account Type Relation to Patient Date of Phone Billing Address Personal/Family Spouse Care Teams Sheather Relationship Specialty Start Date End Date Nusrat Harding MD [address] [place] [address] [place] [address] PCP - General Family Medicine 03/16/24
== END 2024-07-24 07:09 | disposition home or self-care (01) ==
LOC: CHSIMG 07:08
PROVIDERS: PCP Family Medicine; Visit Provider Obstetrics & Gynecology
DX: Z12.31 Encounter for screening mammogram for malignant neoplasm of breast (principal)
CPT/HCPCS: 77063; 77067

== ENCOUNTER 2025-02-18 16:32 | Emergency (ER) | payer BC, SELFPAY ==
--- NOTE | ~2025-02-18 | CT_ITS ---
EXAMINATION: CT brain wo con DATE: 02/18/2025 17:18 INDICATION: Injury a few days ago. Headache. TECHNIQUE: Computed tomography (CT) of the head was performed without intravenous contrast. The mA was adjusted according to patient size. Iterative reconstruction technique was employed. The dose-length product was 681.00 mGy-cm. COMPARISON: None FINDINGS: No acute intracranial bleed. No extra-axial collections. No effacement of sulci. No evidence of ventriculomegaly or midline shift. No acute cranial fracture. IMPRESSION: 1. No acute findings in the limited noncontrast CT head. No acute cranial fracture. Reviewed, dictated and finalized at location T. NUE COORDINATOR IMPRESSION: 1. No acute findings in the limited noncontrast CT head. No acute cranial fract ure.
--- NOTE | ~2025-02-18 | CT_ITS ---
EXAMINATION: CT cervical spine wo con COMPARISON: None HISTORY: fall days ago; now unequal pupils, ZAVALA TECHNIQUE: Axial images were obtained through the spine without IV contrast. Coronal, sagittal reconstruction images were obtained from the axial views. CT scan performed using dose optimization techniques including the following automated exposure control; adjustment of mA and/or kV; use of iterative reconstruction technique. Automatic exposure control was used to reduce radiation dose. Permanent radiation dose record is archived to PACS. FINDINGS: The vertebral heights are intact. No fracture or subluxation. Moderate loss of disc height at C4-5 C5-6 and C6-7 with moderate to severe canal and foraminal stenosis. Soft tissues demonstrate left thyroid nodule measuring 1 x 1 cm, outpatient ultrasound is suggested. Impression: No acute abnormality. Reviewed, dictated and finalized at location P. R/RELAY CRAFTSMAN Impression: No acute abnormality.
[2025-02-18 16:53] VITALS: BP 122/80; PULSE 86; RESP 16; TEMP 36.9; O2SAT 99
--- OUTSIDE RECORDS SUMMARY | 2025-02-18 19:34 | XMS_ITS | Encounter Summary ---
Author Organization [facility] Address [address] [facility] [place] [address] Care Team Providers Care Environmental Engineering Manager Name Role Phone Sharita Adkins Primary Care Provider [phone] Reason for Visit * Reason Onset Date Comments Surgical Followup 02/18/2025 Encounter Details Date Type Department Care Team (Late st Contact Info) Description 02/18/2025 Telephone [facility] - Orthoped[facility] [address] [place] [address] Aleena Maloney RN Surgical Followup Social History Tobacco Use Types Packs/Day Years Used Date Smoking Tobacco: Never Smokeless Tobacco: Never Alcohol Use Standard Drinks/Week Comments Yes 0 (1 standard drink = 0.6 oz pur e alcohol) occ PHQ-2 Answer Date Recorded Patient Health Questionnaire-2 Score 0 11/22/2024 AUDIT-C Answer Date Recorded Q1: How often do you have a drink containing alc ohol? Monthly or less 02/15/2025 Average Number of Drinks Not on file 025 Frequency of Binge Drinking Not on file 07/2024 Comments Unknown Sex and Gender Information Value Date Recorded Sex Assigned at Not on file Legal Sex Female 5:47 PM CDT Gender Identity Not on file Sexual Orientation Not on file documented as of this encounter Miscellaneous Notes * Telephone Encounter - Aleena Maloney RN - 02/18/2025 1:17 PM CST Received call from MARTY Rubin with [facility]. She states services were started this morning and wanted to inform Dr. Blood that patient is having concussion symptoms. She states patient reportedhaving headaches over the weekend and pupils were reactive but not equal - patient's mother who is a nurse reported pinpoint Right pupil Tuesday but has improved today. Per nurse, patient is feeling better today and does not have any complaints of headache but vision is blurry in the right eye. Dr. Blood was notified and she advised patient go to ER/urgent care for further work up. NN spoke withpatient and she verbalized understanding and will contact Dr. Blood's office later today or tomorrowto provide update on symptoms. NN will follow up with facility on evaluation. OARD MOTOR MECHANIC documented in this encounter Plan of Treatment Upcoming Encounters Date Type Department Care Team (Late st Contact Info) Description 02/28/2025 10:45 AM OUTBOARD MOTOR MECHANIC Office Visit [facility] - Orthopedic Surgery [address], [facility] [address] [place] [phone] Myrna Blood MD [address] [facility] [address] DIV [place] [phone] documented as of this encounter Visit Diagnoses Not on filedocumented in this encounter Care Teams Environmental Engineering Manager Relationship Specialty Start Date End Date Sharita Adkins [address] [place] [address] PCP - General 11/29/24 documented as of this encounter
--- OUTSIDE RECORDS SUMMARY | 2025-02-18 19:34 | XMS_ITS | Encounter Summary ---
Author Organization [facility] Address [address] [facility] [address] Care Team Providers Care Transition Assistant Name Role Phone Sharita Adkins Primary Care Provider [phone] Reason for Visit * Reason Onset Date Comments Surgical Followup 02/15/2025 Encounter Details Date Type Department Care Team (Late st Contact Info) Description 02/15/2025 Telephone [facility] [address] [place] [address] Aleena Maloney RN Surgical Followup [...] on file documented as of this encounter Functional Status documented as of this encounter Miscellaneous Notes * Telephone Encounter - Alenea Maloney RN - 02/18/2025 8:16 AM CST Patient discharged home on 02/16 - s/p L ALONZO with Dr. Blood. Updated clinical notes and discharge orders were faxed to [facility]; fax # [phone]. YARN SORTER * Telephone Encounter - Aleena Maloney RN - 02/15/2025 2:54 PM CST Patient admitted to [facility] on this date for Left ALONZO with Dr. Blood. HH referral were sent to multiple HH agencies that service patient's local area. [facility] (phone number [phone]) able to accept for HH PT/OT/SN. Spoke with patient via telephone to provide [facility] ratings; patient agreeableto using this agency for HH. Updated clinical notes and discharge summary can be faxed to [phone]. HH referrals: [facility] - accept, start 02/18 [facility] - denied, out of network [facility] - denied, insurance slots full YARN SORTER YARN SORTER documented in this encounter Plan of Treatment Upcoming Encounters Date Type Department Care Team (Late st Contact Info) Description 02/28/2025 10:45 AM WARP YARN SORTER Office Visit [facility] - [facility] [address] [facility], [facility] [address] [place] [address] Myrna Blood MD [address] [facility] [address] [place] [phone] documented as of this encounter Visit Diagnoses Not on filedocumented in this encounter Care Teams Transition Assistant Relationship Specialty Start Date End Date Sharita Adkins [address] [place] [phone] PCP - General 11/29/24 documented as of this encounter
--- OUTSIDE RECORDS SUMMARY | 2025-02-18 19:35 | XMS_ITS | Clinical Summary ---
Author Organization [facility] Address [address] [place] [address] Care Team Providers Care Medical Lab Director Name Role Phone Sharita Adkins Primary Care Provider [phone] Source Comments [facility],non-owned Affiliates and Associated Physician Practices is amultiple site organization consisting of ambulatory clinics and hospital sitesin [place], [place] and [place]. This disclosure is being madepursuant to the Care Everywhere program and may not contain all information available regarding this patient. Last updated 17.[facility] Allergies No known active allergies Medications * Be aware that medications may not be up to date on this document. Alwaysverify current medications with the patient. Lexapro 20 MG tablet 03/14/19 24 Active traZODone (Desyrel) 100 MG tablet 04/04/19 24 Active Capsaicin-Menthol (SALONPAS GEL-PATCH HOT EX) Ac tive diclofenac sodium (Voltaren) 1 % gel Apply to affected area 4 times daily Active meloxicam (Mobic) 15 MG tablet TAKE 1 TABLET BY MOUTH DAILY 30 tablet 3 11/20/19 25 Active aspirin (Aspirin) 81 MG chew tablet Take 1 (one) tablet by mouth 2 times daily (chew and swallow) 80 tablet 02/17/20 25 Active celecoxib (CeleBREX) 200 MG capsule Take 1 (one) capsule by mouth 2 times daily 60 capsule 1 02/17/20 25 Active pregabalin (Lyrica) 75 MG capsule Take 1 (one) capsule by mouth 2 times daily 30 capsule 02/17/20 25 Active acetaminophen (Tylenol) 500 MG tablet Take 2 (two) tablets by mouth 3 times daily Maximum allowable Acetaminophen amount = 4 Grams (4000 mg) / 24 hours. 02/17/20 25 Active oxyCODONE, immediate release, (Roxicodone) 5 MG tabletIndications: Primary osteoarthritis of left hip Take 1 (one) tablet to 2 (two) tablets by mouth every 4 hours as needed for pain (Moderate or Severe Pain) 30 tablet 02/17/20 25 Active docusate sodium (Colace) 100 MG capsule Take 1 (one) capsule by mouth once daily 30 capsule 02/17/20 25 Active ondansetron, disintegrating, (Zofran ODT) 4 MG tablet Take 1 (one) tablet by mouth every 8 hours as needed for nausea/vomiting Allow tablet to dissolve on the tongue 15 tablet 02/17/20 25 Active estradiol (Vivelle-Dot) 0.025 MG/24HR patch Apply 1 (one) patch to skin Two times a week 01/03/20 25 Active Active Problems Problem Noted Date Diagnosed Date Primary osteoarthritis of left hip 01/08/2025 Hip pain 04/04/2023 Encounters Date Type Department Care Team Description 02/18/2025 Telephone [facility] - [facility]oped[facility] [place] [address] Aleena Maloney RN Surgical Followup 02/15/2025 7:28 AM [facility] Anesthesia Event [facility] [address] [place] [address] Sukhjinder Boone MD Carter, Jeffrey D, MD 02/15/2025 7:15 AM SPECIAL EFFECTS ARTIST - 02/15/2025 10:40 AM [facility] Surgery [facility] [address] [place] [address] Myrna Blood MD ARTHROPLASTY TOTAL HIP 02/15/2025 5:18 AM SPECIAL EFFECTS ARTIST - 02/16/2025 3:50 PM [facility] Hospital Encounter [facility] 2 ORTHO/NEW VIS [address] [place] [address] Myrna Blood MD Surgery General Discharge Disposition: Home Health Care [facility] [place] 02/15/2025 Telephone [facility] - Orthopedics [address] [facility] [place] [phone] Aleena Maloney RN Surgical Followup 02/15/2025 Travel 11/29/2024 11:15 AM CDT Office Visit [facility] - Orthopedic Surgery [address] [place] [phone] Myrna Blood MD Primary osteoarthritis of left hip (Primary Dx); Status post left hip replacement 11/29/2024 Travel from Last 3 Months Social History Tobacco Use Types Packs/Day Years [...] Sign Reading Time Taken Comments Blood Pressure 111/60 02/16/2025 1:47 PM SPECIAL EFFECTS ARTIST Pulse 80 02/16/2025 1:43 PM SPECIAL EFFECTS ARTIST Temperature 36.8 C (98.3 F) 02/16/2025 7:57 AM SPECIAL EFFECTS ARTIST Respiratory Rate 18 02/16/2025 7:57 AM SPECIAL EFFECTS ARTIST Oxygen Saturation 99% 02/16/2025 1:43 PM SPECIAL EFFECTS ARTIST Inhaled Oxygen Concentration - - Weight 84.8 kg (187 lb) 02/15/2025 5:53 AM SPECIAL EFFECTS ARTIST Height 162.6 cm (5' 4) 02/15/2025 5:53 AM SPECIAL EFFECTS ARTIST Body Mass Index 32.1 02/15/2025 5:53 AM SPECIAL EFFECTS ARTIST Plan of Treatment Upcoming Encounters Date Type Department Care Team (Late st Contact Info) Description 02/28/2025 10:45 AM SPECIAL EFFECTS ARTIST Office Visit [facility] - Orthopedic Surgery [address] [place] [phone] Myrna Blood MD [address] DIV [place] [address] Health Maintenance Due Date Last Done Comments COLOGUARD (AGES 45-75) - COL ON CA SCREENING 1974 COLON MONITORING 1974 COLONOSCOPY - COLON CA SCREENING 1974 CT COLONOGRAPHY - COLON CA SCREENING 1974 Colorectal Cancer Screening 1974 FIT - COLON CA SCREENING 1974 FLEX SIG - COLON CA SCREENING 1974 LIPID TESTING 1974 MAMMOGRAM 1974 HIV SCREENING 1989 HEPATITIS C SCREENING 01/15/1992 DTAP/TDAP/TD VACCINES (1 - Tdap) 1993 HEPATITIS B VACCINE (1 of 3 - 19+ 3-dose series) 1993 PAP SMEAR 1995 PNEUMOCOCCAL VACCINE 50+ (1 of 1 - PCV) 01/20/2024 ZOSTER VACCINE (1 of 2) 01/20/2024 COVID-19 VACCINE (2 - 2024-2 6 season) 2024 05/19/2020 INFLUENZA VACCINE (#1) 2024 SCREENING FOR DIABETES 02/17/2028 , 02/15/2025 DEPRESSION SCREENING Completed 04/05/2024 HIB VACCINE Aged Out No longer eligi ble based on patient's age to complete this topic HPV VACCINE Aged Out No longer eligi ble based on patient's age to complete this topic MENINGOCOCCAL (Group B) VACCINE SHARED DECISION-MAKING Aged Out No longer eligible based on patient's age to complete this topic MENINGOCOCCAL GROUPS A/C/Y/W VACCINE Aged Out No longer eligible b ased on patient's age to complete this topic Medical Devices Implanted Type Area General Manager In Training Device Identifier Shelf Expiration Date Model / Serial / Lot Shell Actb 56mm Hip 4 Hl Clr Cd [place] Implanted:Qty : 1 on 02/15/2025 by Myrna Blood MD at [facility] Left: Hip [employer] [id number] 11/17/2034 [id number] / / [id number] Liner Actb G7 F 36mm Vivacit-E Hip Lum Implanted:Qty : 1 on 02/15/2025 by Myrna Blood MD at [facility] Left: Hip [employer] [id number] 12/06/2028 [id number] / / [id number] Implant System Size 4 Implanted:Qty : 1 on 02/15/2025 by Myrna Blood MD at [facility] Left: Hip [employer] [id number] / / [id number] Head Fem +0mm 02/24 Med 36mm Hip Actb Implanted:Qty : 1 on 02/15/2025 by Myrna Blood MD at [facility] Left: Hip [employer] [id number] 11/27/2034 [id number] / / [id number] Procedures Procedure Name Priority Date/Time Associated Diagnosis Comments CBC W/O DIFFERENTIAL AM Draw 02/16/2025 5:46 AM SPECIAL EFFECTS ARTIST Primary osteoarthritis of left hip BASIC METABOLIC PANEL (CALCIUM TOTAL) AM Draw 02/16/2025 5:46 AM SPECIAL EFFECTS ARTIST Primary osteoarthritis of left hip XR HIP LEFT 2VW OR MORE STAT 02/15/2025 10:48 AM SPECIAL EFFECTS ARTIST Primary osteoarthritis of left hip MN TOTAL HIP REPLACEMENT 02/15/2025 6:35 AM SPECIAL EFFECTS ARTIST Primary osteoarthritis of left hip Case Notes Lateral on peg boardZIMMER: MAT EY: [phone] Special Needs NEEDS TELEGRAPH SERVICE CLERK, PEGBOARD, CHAD: REP. (MAT EY # [phone]) NOTIFIED PER OFFICE (FADIA)--01/17 EDE / Dr. vu patient in Lateral position on peg board-REP EMAILED 02/11 WC BLOOD TYPE VERIFICATION Routine 02/15/2025 6:06 AM SPECIAL EFFECTS ARTIST TYPE + SCREEN PANEL VIC 02/15/2025 6 :02 AM SPECIAL EFFECTS ARTIST BASIC METABOLIC PANEL (CALCIUM TOTAL) STAT 02/15/2025 6:02 AM SPECIAL EFFECTS ARTIST Preop testing CBC W AUTO DIFFERENTIAL VIC 02/15/2025 6:02 AM SPECIAL EFFECTS ARTIST Preop testing from Last 3 Months Results * (ABNORMAL) CBC W/O DIFFERENTIAL (02/16/2025 5:46 AM SPECIAL EFFECTS ARTIST) [facility] Signature WBC 5.3 4.0 - 10.7 x10E9/L 02/16/2025 6:44 AM [facility] RBC Count 3.33(L) 3.90 - 5.20 x10E12/L 02/16/2025 6:44 AM [facility] Hemoglobin 10.5(L) 11.9 - 15.8 g/dL 02/16/2025 6:44 AM [facility] Comment:Results Rechecked Hematocrit 30.5(L) 34.8 - 46.1 % 02/16/2025 6:44 AM [facility] MCV 91.6 80.0 - 98.0 fL 02/16/2025 6:44 AM [facility] MCH 31.5 26.7 - 33.6 pg 02/16/2025 6:44 AM [facility] MCHC 34.4 31.7 - 36.3 g/dL 02/16/2025 6:44 AM [facility] RDW-CV 13.0 11.3 - 14.8 % 02/16/2025 6:44 AM [facility] Platelet Count 210 150 - 420 x10E9/L 02/16/2025 6:44 AM [facility] MPV 9.8 7.8 - 11.4 fL 02/16/2025 6:44 AM [facility] Blood BLOOD SPECIMEN / Unknown Lab Venipuncture / Unknown 02/16/2025 5:46 AM SPECIAL EFFECTS ARTIST 02/16/2025 6:09 AM SPECIAL EFFECTS ARTIST us Myrna Blood MD LAB - HEMATOLOGY ORDERABLES Renetta pyle Result [facility] [address] [place] [address] * (ABNORMAL) BASIC METABOLIC PANEL (CALCIUM TOTAL) (02/16/2025 5:46 AM SPECIAL EFFECTS ARTIST) Only the most recent of2 resultswithin the time period is included. Glucose 93 70 - 99 mg/dL 02/16/2025 6:48 AM [facility] Sodium 138 136 - 145 mmol/L 02/16/2025 6:48 AM [facility] Potassium 4.0 3.5 - 5.1 mmol/L 02/16/2025 6:48 AM [facility] Chloride 108(H) 98 - 107 mmol/L 02/16/2025 6:48 AM [facility] CO2 25 22 - 29 mmol/L 02/16/2025 6:48 AM [facility] Calcium 8.1(L) 8.4 - 10.4 mg/dL 02/16/2025 6:48 AM [facility] Anion Gap 5(L) 6 - 16 mmol/L 02/16/2025 6:48 AM [facility] BUN 13 7 - 26 mg/dL 02/16/2025 6:48 AM [facility] Creatinine 0.78 0.50 - 1.10 mg/dL 02/16/2025 6:48 AM [facility] eGFR by CKD-EPI >90 >=90 mL/min/1.7 3 m2 02/16/2025 6:48 AM [facility] Comment:Estimated Glomerular Filtration Rate (eGFR) calculated using the CKD-EPI Creatinine Equation (2020), per the National Kidney Foundation and [place] [employer] of Nephrology recommendations. Blood BLOOD SPECIMEN / Unknown Lab Venipuncture / Unknown 02/16/2025 5:46 AM SPECIAL EFFECTS ARTIST 02/16/2025 6:09 AM SPECIAL EFFECTS ARTIST us Myrna Blood MD LAB - CHEMISTRY ORDERABLES Final Result [facility] [address] [place] [address] * XR HIP LEFT 2VW OR MORE (02/15/2025 10:48 AM SPECIAL EFFECTS ARTIST) Anatomical Region Laterality Modality Pelvis, Lower Extremity [facility] 02/15/2025 11:0 0 AM SPECIAL EFFECTS ARTIST Impressions 02/15/2025 11:02 AM SPECIAL EFFECTS ARTIST IMPRESSION: Left hip arthroplasty. > Interpreting Provider: Almita Maxwell MD on 02/15/2025 11:02 AM Narrative 02/15/2025 11:02 AM SPECIAL EFFECTS ARTIST PROCEDURE: XR HIP LEFT 2VW OR MORE DATE/TIME OF EXAM: 02/15/2025 10:48 AM CLINICAL INFORMATION: None relevant/not provided if blank. Indication: M16.12: Primary osteoarthritis of left hip Additional History: COMPARISON: 10/31/2024 FINDINGS: A left hip arthroplasty is seen. There is no fracture. Procedure Note Almita Maxwell MD - 02/15/2025 PROCEDURE: XR HIP LEFT 2VW OR MORE DATE/TIME OF EXAM: 02/15/2025 10:48 AM CLINICAL INFORMATION: None relevant/not provided if blank. Indication: M16.12: Primary osteoarthritis of left hip Additional History: COMPARISON: 10/31/2024 FINDINGS: A left hip arthroplasty is seen. There is no fracture. IMPRESSION: Left hip arthroplasty. > Interpreting Provider: Almita Maxwell MD on 02/15/2025 11:02 AM Myrna Blood MD DIAGNOSTIC IMAGING ORDERABLES Fi nal Result * BLOOD TYPE VERIFICATION (02/15/2025 6:06 AM SPECIAL EFFECTS ARTIST) ABO Rh O POS 02/15/2025 6:38 AM SPECIAL EFFECTS ARTIST [facility] Comment:History checked. Blood Bank BLOOD SPECIMEN / Unknown Venipuncture / Unknown 02/15/2025 6:06 AM SPECIAL EFFECTS ARTIST 02/15/2025 6:10 AM SPECIAL EFFECTS ARTIST Bhavin Wilson MD LAB - BLOOD BANK ORDERABLES Renetta pyle Result [facility] [address] [phone] * TYPE + SCREEN PANEL (02/15/2025 6:02 AM SPECIAL EFFECTS ARTIST) ABO Rh O POS 02/15/2025 6:38 AM [facility] Comment:No history; collect retype. Antibody Screen NEG 6:38 AM [facility] Blood Bank BLOOD SPECIMEN / Unknown Venipuncture / Unknown 02/15/2025 6:02 AM SPECIAL EFFECTS ARTIST 02/15/2025 6:05 AM [facility] Bhavin Wilson MD LAB - BLOOD BANK ORDERABLES Renetta pyle Result [facility] [address] [phone] * CBC W AUTO DIFFERENTIAL (02/15/2025 6:02 AM [facility]) WBC 5.7 4.0 - 10.7 x10E9/L 02/15/2025 6:17 AM [facility] RBC Count 4.46 3.90 - 5.20 x10E12/L 02/15/2025 6:17 AM [facility] Hemoglobin 13.9 11.9 - 15.8 g/dL 02/15/2025 6:17 AM [facility] Hematocrit 39.8 34.8 - 46.1 % 02/15/2025 6:17 AM [facility] MCV 89.2 80.0 - 98.0 fL 02/15/2025 6:17 AM [facility] MCH 31.2 26.7 - 33.6 pg 02/15/2025 6:17 AM [facility] MCHC 34.9 31.7 - 36.3 g/dL 02/15/2025 6:17 AM [facility] RDW-CV 12.6 11.3 - 14.8 % 02/15/2025 6:17 AM [facility] Platelet Count 264 150 - 420 x10E9/L 02/15/2025 6:17 AM [facility] MPV 9.3 7.8 - 11.4 fL 02/15/2025 6:17 AM [facility] Neutrophil % 48.1 41.0 - 74.0 % 02/15/2025 6:17 AM SPECIAL EFFECTS ARTIST [facility] Lymphocyte % 39.0 17.0 - 47.0 % 02/15/2025 6:17 AM SPECIAL EFFECTS ARTIST [facility] Monocyte % 10.1 3.0 - 11.0 % 02/15/2025 6:17 AM SPECIAL EFFECTS ARTIST [facility] Eosinophil % 1.9 0.0 - 7.0 % 02/15/2025 6:17 AM SPECIAL EFFECTS ARTIST [facility] Basophil % 0.7 0.0 - 1.6 % 02/15/2025 6:17 AM SPECIAL EFFECTS ARTIST [facility] Immature Granulocytes % 0.2 0.0 - 1.0 % 02/15/2025 6:17 AM SPECIAL EFFECTS ARTIST [facility] Neutrophil Absolute 2.76 1.60 - 7.50 x10E9/L 02/15/2025 6:17 AM SPECIAL EFFECTS ARTIST [facility] Lymphocyte Absolute 2.24 1.00 - 4.40 x10E9/L 02/15/2025 6:17 AM SPECIAL EFFECTS ARTIST [facility] Monocyte Absolute 0.58 0.15 - 1.00 x10E9/L 02/15/2025 6:17 AM [facility] Eosinophil Absolute 0.11 0.00 - 0.60 x10E9/L 02/15/2025 6:17 AM [facility] Basophil Absolute 0.04 0.00 - 0.13 x10E9/L 02/15/2025 6:17 AM [facility] Blood BLOOD SPECIMEN / Unknown Venipuncture / Unknown 02/15/2025 6:02 AM SPECIAL EFFECTS ARTIST 02/15/2025 6:05 AM [facility] Bhavin Wilson MD LAB - HEMATOLOGY ORDERABLES Renetta pyle Result Performing Organization Address [facility]/State/ZIP Co de Phone Number [facility] [address] [place] [address] from Last 3 Months Insurance ANTHEM * Guarantor: ISA FELTON Type Relation to Patient Date of Phone Billing Address Personal/Family Spouse Advance Directives * Full Code (Latest Code Status on File) Date Activated Date Inactivated Comments 02/15/2025 10:40 AM 02/16/2025 4:55 PM Care Teams Medical Lab Director Relationship Specialty Start Date End Date Sharita Adkins [address] [place] [address] [place] [address] PCP - General 11/29/24
--- OUTSIDE RECORDS SUMMARY | 2025-02-18 19:35 | XMS_ITS | Clinical Summary ---
Author Organization [facility] Address [address] [place] [address] Care Team Providers Care Cutter Helper Name Role Phone Unavailable Primary Care Provider [...] Screening with HPV 01/20/2004 Mammogram Screening 2014 Pneumococcal Vaccine: 50+ Ye ars (1 of 1 - PCV) 01/20/2024 Zoster Vaccines (1 of 2) 01/20/2024 COVID-19 Vaccine ( - 2024-2 6 season) 2024 Influenza Adult (#1) 2024 Hepatitis A Vaccines Aged Out No long er eligible based on patient's age to complete this topic Meningococcal B Vaccine Aged Out No l onger eligible based on patient's age to complete this topic Meningococcal Vaccine Aged Out No devante malou eligible based on patient's age to complete this topic RSV Immunizations Under 20 Months Aged Out No longer eligible based on patient's age to complete this topic
--- NOTE | 2025-02-18 20:16 | ED.NEUROSD ---
HPI - Neuro Symptoms/Deficit General Chief Complaint: Neuro Symptoms/Deficit Stated Complaint: fall, hit head and blurry vision Time Seen by Provider: 02/18/25 19:42 History of Present Illness HPI Narrative: Patient had a fall a couple days ago, hit her head, was told that everything seemed fine and she has been having a slight headache, some blurred vision to right eye and some halos, initially her pupils were also unequal and so came in to get a CT. Related Data Home Medications ?Medication ?Instructions ?Recorded ?Confirmed ?Last Taken ?Type fluticasone propionate 50 1 spray intranasal DAILY PRN 07/31/20 08/11/24 06/26/23 History mcg/actuation nasal allergies spray,suspension (Flonase Allergy Relief) multivit with minerals-iron 18 1 tablet PO DAILY 06/23/23 08/11/24 Unknown History mg-folic ac 400 mcg-vit K 25 mcg tablet (One Daily Women's) trazodone 50 mg tablet 50 mg PO QHS PRN 07/19/24 08/11/24 Unknown History Allergies Allergy/AdvReac Type Severity Reaction Status Date / Time No Known Allergies Allergy Verified 07/19/24 11:10 Review of Systems Review of Systems: All systems reviewed & are unremarkable except as noted in HPI and below PMFSH Past Medical History Medical History Cholelithiasis Gallbladder colic History of use of contraceptive intrauterine device (IUD) Displaced emergency surgery to remove Anxiety Seasonal allergies Surgical History Surgical History Hx laparoscopic cholecystectomy 02/02/21 History of surgical removal of ganglion cyst Chest wall 2008 Hx of section X 2 2004 and 2007 Family History Family History Other Asthma Mother Thyroid disorder Father Heart valve replaced History of heart artery stent STEMI (ST elevation myocardial infarction) Hypertension Son Asthma Grandparent Cerebrovascular accident History of blood clots Social History Social History Smoking status: Never smoker Second hand tobacco smoke exposure: Yes Alcohol intake: current Substance use: never Substance use type: does not use Living arrangements: with family Spiritual care concerns: No Exam Narrative: EXAMINATION OF ORGAN SYSTEMS/BODY AREAS: Constitutional: Vital signs per nursing GENERAL:[No acute distress, non-toxic appearing.] HEAD: Normal with no signs of head trauma. EYES: EOMI, conjunctiva normal, PERRL, normal equal pupils ENT: Hearing grossly intact LUNGS: Nonlabored breathing. HEART: [Regular rate and rhythm] ABD: [Soft], [nontender to palpation] EXT: Normal range of motion SKIN: [No rashes or lesions.] NEURO: [Alert. No gross focal sensory or strength deficits.] PSYCH: Normal affect Course Vital Signs Vital signs: Vital Signs Temperature 98.4 F 02/18/25 16:53 Pulse Rate 86 02/18/25 16:53 Respiratory Rate 16 02/18/25 16:53 Blood Pressure 122/80 02/18/25 16:53 Pulse Oximetry 99 02/18/25 16:53 Oxygen Delivery Room Air 02/18/25 16:53 Temperature 98.4 F 02/18/25 16:53 Pulse Rate 86 02/18/25 16:53 Respiratory Rate 16 02/18/25 16:53 Blood Pressure 122/80 02/18/25 16:53 Pulse Oximetry 99 02/18/25 16:53 Oxygen Delivery Room Air 02/18/25 16:53 MDM MDM Narrative Medical decision making narrative: Patient presents here after she had a fall a couple days ago, concern for unequal pupils and headache and blurred vision. Her headache has resolved, she her pupils are now the same and normal, she still feels like her right eye is a little bit more blurred than her left. Visual acuity here 2020 on left, 2020 -2 on right, PERRL, IOP 12. Discussed with online advertising analyst at [facility] Dr Martinez who recommends transfer for emergent evaluation, discussed with patient who would rather go home tonight instead of going to the [facility] ER; she understands risks of this including missed life or eye threatening diagnosis. Sql Database Developer was able to arrange for clinic appointment tomorrow morning. I did let the patient and family member know that if he changes mind they can always go straight to the ER. Differential Diagnosis Differential Diagnosis: Intracranial hemorrhage, vitreous detachment, etc. Imaging Data Radiologist's impression: ITS Impressions Head CT 02/18/25 17:24 IMPRESSION: 1. No acute findings in the limited noncontrast CT head. No acute cranial fracture. Cervical Spine CT 02/18/25 17:25 Impression: No acute abnormality. Discharge Plan Discharge Clinical Impression: Changes in vision Patient Disposition: Home Condition: Stable Additional Instructions: Please follow up with [facility] ophthalmology at 8am tomorrow. Karen Harris Their clinic phone number is [phone] If symptoms worsen or if you change your mind about being seen tonight please go straight to the [facility] ER. Patient Language: Nepalese Prescriptions: No Action fluticasone propionate [Flonase Allergy Relief] 50 mcg/actuation spray,suspension 1 spray intranasal DAILY PRN (Reason: allergies) Rx Instructions: administer into each nostril paroxetine HCl 10 mg tablet 10 mg PO DAILY Qty: 30 1RF trazodone 50 mg tablet 50 mg PO QHS PRN One Daily Women's 18 mg iron-400 mcg-25 mcg Tablet 1 tablet PO DAILY Follow-up/Referrals: Meaghan,Nusrat Aparicio MD [Non-Staff]
--- NOTE | 2025-02-18 20:38 | PC.NURSE ---
visual acuity right eye 20/25 left eye 20/20
--- OUTSIDE RECORDS SUMMARY | 2025-02-18 20:47 | XMS_ITS | Encounter Summary ---
Author Organization [facility] Address [address] [facility] [place] [address] Care Team Providers Care State Federal Relations Deputy Director Name Role Phone Sharita Adkins Primary Care Provider [phone] Reason for Visit * Reason Onset Date Comments Surgical Followup 02/15/2025 Encounter Details Date Type Department Care Team (Late st Contact Info) Description 02/15/2025 Telephone [facility] [address] [place] [address] Aleena Maloney RN Surgical Followup [...] Encounter - Aleena Maloney RN - 02/18/2025 8:16 AM CST Patient discharged home on 02/16 - s/p L ALONZO with Dr. Blood. Updated clinical notes and discharge orders were faxed to [facility]; fax # [phone]. NEERING DESIGN SUPERVISOR * Telephone Encounter - Aleena Maloney RN - 02/15/2025 2:54 PM CST Patient admitted to [facility] on this date for Left ALONZO with Dr. Blood. HH referral were sent to multiple HH agencies that service patient's local area. [facility] (phone number [phone]) able to accept for HH PT/OT/SN. Spoke with patient via telephone to provide [facility] ratings; patient agreeableto using this agency for HH. Updated clinical notes and discharge summary can be faxed to [phone]. HH referrals: [facility] - accept, start 02/18 [facility] - denied, out of network [facility] - denied, insurance slots full NEERING DESIGN SUPERVISOR NEERING DESIGN SUPERVISOR documented in this encounter Plan of Treatment Upcoming Encounters Date Type Department Care Team (Late st Contact Info) Description 02/28/2025 10:45 AM ENGINEERING DESIGN SUPERVISOR Office [facility] [address] [facility] [address] [place] [address] Myrna Blood MD [address] [facility] [address] Door [address]2 DIV [place] [phone] documented as of this encounter Visit Diagnoses Not on filedocumented in this encounter Care Teams State Federal Relations Deputy Director Relationship Specialty Start Date End Date Sharita Adkins [address] [place] [phone] PCP - General 11/29/24 documented as of this encounter
--- OUTSIDE RECORDS SUMMARY | 2025-02-18 20:48 | XMS_ITS | Clinical Summary ---
Author Organization [facility] Address [address] [place] [address] Care Team Providers Care Manager Staffing Name Role Phone Unavailable Primary Care Provider [...]
--- OUTSIDE RECORDS SUMMARY | 2025-02-18 20:48 | XMS_ITS | Clinical Summary ---
Author Organization [facility] Address [address] [facility] [place] [address] Care Team Providers Care Reeling Operator Name Role Phone Sharita Adkins Primary Care Provider [phone] Source Comments [facility],non-owned Affiliates and Associated Physician Practices is amultiple site organization consisting of ambulatory clinics and hospital sitesin [place], [place], [place] and [place]. This disclosure is being madepursuant to the Care Everywhere program and may not contain all information available regarding this patient. Last updated 17.[facility] Allergies No known active allergies Medications * [...] Description 02/18/2025 Telephone [facility] [address] [place] [phone] Steve Huizar MD Eye Problem 02/18/2025 Telephone [facility] [address] [place] [phone] Aleena Maloney RN Surgical Followup 02/15/2025 7:28 AM [facility] Anesthesia Event [facility] [address] [place] [address] Sukhjinder Boone MD Carter, Jeffrey D, MD 02/15/2025 7:15 AM TUNNEL ELASTIC OPERATOR CHAINSTITCH - 02/15/2025 10:40 AM [facility] Surgery [facility] [address] [place] [address] Myrna Blood MD ARTHROPLASTY TOTAL HIP 02/15/2025 5:18 AM TUNNEL ELASTIC OPERATOR CHAINSTITCH - 02/16/2025 3:50 PM [facility] Hospital Encounter [facility] 2 ORTHO/NEW VIS [address] [place] [address] Myrna Blood MD Surgery General Discharge Disposition: Home Health Care Sv 02/15/2025 Telephone [facility] [address] [facility], [place] [address] Aleena Maloney RN Surgical Followup 02/15/2025 Travel 11/29/2024 11:15 AM CDT Office Visit [facility] [address] [facility] [address] [place] [address] Myrna Blood MD Primary osteoarthritis of [...] Comments Blood Pressure 111/60 02/16/2025 1:47 PM TUNNEL ELASTIC OPERATOR CHAINSTITCH Pulse 80 02/16/2025 1:43 PM TUNNEL ELASTIC OPERATOR CHAINSTITCH Temperature 36.8 C (98.3 F) 02/16/2025 7:57 AM TUNNEL ELASTIC OPERATOR CHAINSTITCH Respiratory Rate 18 02/16/2025 7:57 AM TUNNEL ELASTIC OPERATOR CHAINSTITCH Oxygen Saturation 99% 02/16/2025 1:43 PM TUNNEL ELASTIC OPERATOR CHAINSTITCH Inhaled Oxygen Concentration - - Weight 84.8 kg (187 lb) 02/15/2025 5:53 AM TUNNEL ELASTIC OPERATOR CHAINSTITCH Height 162.6 cm (5' 4) 02/15/2025 5:53 AM TUNNEL ELASTIC OPERATOR CHAINSTITCH Body Mass Index 32.1 02/15/2025 5:53 AM TUNNEL ELASTIC OPERATOR CHAINSTITCH Plan of Treatment Upcoming Encounters Date Type Department Care Team (Late st Contact Info) Description 02/28/2025 10:45 AM TUNNEL ELASTIC OPERATOR CHAINSTITCH Office Visit [facility] [address], [address] [place] [address] Myrna Blood MD [address] [facility] [address] DIV [place] [address] Health Maintenance Due Date Last Done Comments [...] VACCINE (#1) 2024 SCREENING FOR DIABETES 02/17/2028 5, 02/15/2025 DEPRESSION SCREENING Completed 04/05/2024 HIB VACCINE [...] this topic Medical Devices Implanted Type Area Energy Conservation Specialist Device Identifier Shelf Expiration Date Model / Serial / Lot Shell Actb 56mm Hip 4 Hl Clr Cd [place] Implanted:Qty : 1 on 02/15/2025 by Myrna Blood MD at [facility] Left: Hip [employer] [id number] 11/17/2034 [id number] / / [id number] Liner Actb G7 F 36mm Vivacit-E Hip Lum Implanted:Qty : 1 on 02/15/2025 by Myrna Blood MD at [facility] Left: Hip [employer] [id number] 12/06/2028 [id number] / / [id number] Implant System Size 4 Implanted:Qty : 1 on 02/15/2025 by Myrna Blood MD at [facility] Left: Hip [employer] [id number] / / [id number] Head Fem +0mm 02/24 Med 36mm Hip Actb Implanted:Qty : 1 on 02/15/2025 by Myrna Blood MD at [facility] Left: Hip [employer] [id number] 11/27/2034 [id number] / / [id number] Procedures Procedure Name Priority Date/Time Associated Diagnosis Comments CBC W/O DIFFERENTIAL AM Draw 02/16/2025 5:46 AM TUNNEL ELASTIC OPERATOR CHAINSTITCH Primary osteoarthritis of left hip BASIC METABOLIC PANEL (CALCIUM TOTAL) AM Draw 02/16/2025 5:46 AM TUNNEL ELASTIC OPERATOR CHAINSTITCH Primary osteoarthritis of left hip XR HIP LEFT 2VW OR MORE STAT 02/15/2025 10:48 AM TUNNEL ELASTIC OPERATOR CHAINSTITCH Primary osteoarthritis of left hip ID TOTAL HIP REPLACEMENT 02/15/2025 6:35 AM TUNNEL ELASTIC OPERATOR CHAINSTITCH Primary osteoarthritis of left hip Case Notes Lateral on peg boardZIMMSTEPHEN: CANDICE ARRIOLA: [phone] Special Needs NEEDS CORPORATE RISK ANALYST, PEGBOARD, CHAD: REP. (CANDICE EY # [phone]) NOTIFIED PER OFFICE (FADIA)--01/17 EDE / Dr. vu patient in Lateral position on peg board-REP EMAILED 02/11 WC BLOOD TYPE VERIFICATION Routine 02/15/2025 6:06 AM TUNNEL ELASTIC OPERATOR CHAINSTITCH TYPE + SCREEN PANEL VIC 02/15/2025 6 :02 AM TUNNEL ELASTIC OPERATOR CHAINSTITCH BASIC METABOLIC PANEL (CALCIUM TOTAL) STAT 02/15/2025 6:02 AM TUNNEL ELASTIC OPERATOR CHAINSTITCH Preop testing CBC W AUTO DIFFERENTIAL VIC 02/15/2025 6:02 AM TUNNEL ELASTIC OPERATOR CHAINSTITCH Preop testing from Last 3 Months Results * (ABNORMAL) CBC W/O DIFFERENTIAL (02/16/2025 5:46 AM TUNNEL ELASTIC OPERATOR CHAINSTITCH) Pathologist [facility] WBC 5.3 4.0 - 10.7 x10E9/L 02/16/2025 6:44 AM [facility] RBC Count 3.33(L) 3.90 - 5.20 x10E12/L 02/16/2025 6:[address] [facility] Hemoglobin 10.5(L) 11.9 - 15.8 g/dL 02/16/2025 6:[address] [facility] Comment:Results Rechecked Hematocrit 30.5(L) 34.8 - 46.1 % 02/16/2025 6:[address] [facility] MCV 91.6 80.0 - 98.0 fL 02/16/2025 6:[address] [facility] MCH 31.5 26.7 - 33.6 pg 02/16/2025 6:[address] [facility] MCHC 34.4 31.7 - 36.3 g/dL 02/16/2025 6:[address] [facility] RDW-CV 13.0 11.3 - 14.8 % 02/16/2025 6:[address] [facility] Platelet Count 210 150 - 420 x10E9/L 02/16/2025 6:[address] [facility] MPV 9.8 7.8 - 11.4 fL 02/16/2025 6:[address] [facility] Blood BLOOD SPECIMEN / Unknown Lab Venipuncture / Unknown 02/16/2025 5:46 AM TUNNEL ELASTIC OPERATOR CHAINSTITCH 02/16/2025 6:09 AM TUNNEL ELASTIC OPERATOR CHAINSTITCH Myrna Blood MD LAB - HEMATOLOGY ORDERABLES Renetta l Result Performing Organization Address City/[facility]/ZIP Co de Phone Number [facility] [address] [place] [address] * (ABNORMAL) BASIC METABOLIC PANEL (CALCIUM TOTAL) (02/16/2025 5:46 AM TUNNEL ELASTIC OPERATOR CHAINSTITCH) Only the most recent of2 resultswithin the time period is included. [facility] Glucose 93 70 - 99 mg/dL 02/16/2025 6:[address] [facility] Sodium 138 136 - 145 mmol/L 02/16/2025 6:[address] [facility] Potassium 4.0 3.5 - 5.1 mmol/L 02/16/2025 6:[address] [facility] Chloride 108(H) 98 - 107 mmol/L 02/16/2025 6:[address] [facility] CO2 25 22 - 29 mmol/L 02/16/2025 6:[address] [facility] Calcium 8.1(L) 8.4 - 10.4 mg/dL 02/16/2025 6:[address] [facility] Anion Gap 5(L) 6 - 16 mmol/L 02/16/2025 6:[address] [facility] BUN 13 7 - 26 mg/dL 02/16/2025 6:[address] [facility] Creatinine 0.78 0.50 - 1.10 mg/dL 02/16/2025 6:[address] [facility] eGFR by CKD-EPI >90 >=90 mL/min/1.7 3 m2 02/16/2025 6:[address] [facility] Comment:Estimated Glomerular Filtration Rate (eGFR) calculated using the CKD-EPI Creatinine Equation (2020), per the National Kidney Foundation and [place] [employer] of Nephrology recommendations. Blood BLOOD SPECIMEN / Unknown Lab Venipuncture / Unknown 02/16/2025 5:46 AM TUNNEL ELASTIC OPERATOR CHAINSTITCH 02/16/2025 6:09 AM TUNNEL ELASTIC OPERATOR CHAINSTITCH Myrna Blood MD LAB - CHEMISTRY ORDERABLES Final Result [facility] [address] [place] [address] * XR HIP LEFT 2VW OR MORE (02/15/2025 10:48 AM TUNNEL ELASTIC OPERATOR CHAINSTITCH) Anatomical Region Laterality Modality Pelvis, Lower Extremity [facility] 02/15/2025 11:0 0 AM TUNNEL ELASTIC OPERATOR CHAINSTITCH Impressions 02/15/2025 11:02 AM TUNNEL ELASTIC OPERATOR CHAINSTITCH IMPRESSION: Left hip arthroplasty. > Interpreting Provider: Almita Maxwell MD on 02/15/2025 11:02 AM Narrative 02/15/2025 11:02 AM TUNNEL ELASTIC OPERATOR CHAINSTITCH PROCEDURE: XR HIP LEFT 2VW OR MORE [...] * BLOOD TYPE VERIFICATION (02/15/2025 6:06 AM TUNNEL ELASTIC OPERATOR CHAINSTITCH) ABO Rh O POS 02/15/2025 6:38 AM TUNNEL ELASTIC OPERATOR CHAINSTITCH [facility] Comment:History checked. Blood Bank BLOOD SPECIMEN / Unknown Venipuncture / Unknown 02/15/2025 6:06 AM TUNNEL ELASTIC OPERATOR CHAINSTITCH 02/15/2025 6:10 AM TUNNEL ELASTIC OPERATOR CHAINSTITCH Bhavin Wilson MD LAB - BLOOD BANK ORDERABLES Renetta l Result [facility] [address] [phone] * TYPE + SCREEN PANEL (02/15/2025 6:02 AM [facility]) ABO Rh O POS 02/15/2025 6:[address] [facility] Comment:No history; collect retype. Antibody Screen NEG 6:[address] [facility] Blood Bank BLOOD SPECIMEN / Unknown Venipuncture / Unknown 02/15/2025 6:02 AM TUNNEL ELASTIC OPERATOR CHAINSTITCH 02/15/2025 6:05 AM [facility] us Bhavin Wilson MD LAB - BLOOD BANK ORDERABLES Renetta pyle Result [facility] [address] [place] [address] * CBC W AUTO DIFFERENTIAL (02/15/2025 6:02 AM [facility]) Pathologist [facility] WBC 5.7 4.0 - 10.7 x10E9/L 02/15/2025 6:[address] [facility] RBC Count 4.46 3.90 - 5.20 x10E12/L 02/15/2025 6:[address] [facility] Hemoglobin 13.9 11.9 - 15.8 g/dL 02/15/2025 6:[address] [facility] Hematocrit 39.8 34.8 - 46.1 % 02/15/2025 6:[address] [facility] MCV 89.2 80.0 - 98.0 fL 02/15/2025 6:[address] [facility] MCH 31.2 26.7 - 33.6 pg 02/15/2025 6:[address] [facility] MCHC 34.9 31.7 - 36.3 g/dL 02/15/2025 6:[address] [facility] RDW-CV 12.6 11.3 - 14.8 % 02/15/2025 6:[address] [facility] Platelet Count 264 150 - 420 x10E9/L 02/15/2025 6:[address] [facility] MPV 9.3 7.8 - 11.4 fL 02/15/2025 6:17 AM TUNNEL ELASTIC OPERATOR CHAINSTITCH [facility] Neutrophil % 48.1 41.0 - 74.0 % 02/15/2025 6:[address] [facility] Lymphocyte % 39.0 17.0 - 47.0 % 02/15/2025 6:[address] [facility] Monocyte % 10.1 3.0 - 11.0 % 02/15/2025 6:[address] [facility] Eosinophil % 1.9 0.0 - 7.0 % 02/15/2025 6:[address] [facility] Basophil % 0.7 0.0 - 1.6 % 02/15/2025 6:[address] [facility] Immature Granulocytes % 0.2 0.0 - 1.0 % 02/15/2025 6:[address] [facility] Neutrophil Absolute 2.76 1.60 - 7.50 x10E9/L 02/15/2025 6:[address] [facility] Lymphocyte Absolute 2.24 1.00 - 4.40 x10E9/L 02/15/2025 6:[address] [facility] Monocyte Absolute 0.58 0.15 - 1.00 x10E9/L 02/15/2025 6:[address] [facility] Eosinophil Absolute 0.11 0.00 - 0.60 x10E9/L 02/15/2025 6:[address] [facility] Basophil Absolute 0.04 0.00 - 0.13 x10E9/L 02/15/2025 6:[address] [facility] Blood BLOOD SPECIMEN / Unknown Venipuncture / Unknown 02/15/2025 6:02 AM TUNNEL ELASTIC OPERATOR CHAINSTITCH 02/15/2025 6:05 AM TUNNEL ELASTIC OPERATOR CHAINSTITCH Bhavin Wilson MD LAB - HEMATOLOGY ORDERABLES Renetta pyle Result [facility] [address] [place] [address] from Last 3 Months Insurance ANTHEM * Guarantor: ISA FELTON Account Type Relation to Patient Date of Phone Billing Address Personal/Family Spouse Advance Directives * Full Code (Latest Code Status on File) Date Activated Date Inactivated Comments 02/15/2025 10:40 AM 02/16/2025 4:55 PM Care Teams Reeling Operator Relationship Specialty Start Date End Date Sharita Adkins [address] [place] [phone] PCP - General 11/29/24
--- OUTSIDE RECORDS SUMMARY | 2025-02-18 20:48 | XMS_ITS | Encounter Summary ---
Author Organization [facility] Address [address] [place] [place] [address] Care Team Providers Care Sales Mgr Name Role Phone Sharita Adkins Primary Care Provider [phone] Reason for Visit * Reason Onset Date Comments Eye Problem 02/18/2025 Encounter Details Date Type Department Care Team (Late st Contact Info) Description 02/18/2025 Telephone [facility] [address] [place] [address] Steve Huizar MD [address] [facility] [place] [address] Eye Problem Social History Tobacco Use Types Packs/Day Years [...] encounter Miscellaneous Notes * Telephone Encounter - Steve Huizar MD - 02/18/2025 8:17 PM CST Telephone Encounter Note: Received a page and returned call. Spoke with provider about Susanna Felton. Provider stated that patient had a fall a few days ago and was told by her mom that one of her pupils was larger than the other one. Per charts, her right pupil was pinpoint by mom, who is an RN. Patient came to the ED today. ED provider reports VA 20/20 OS, 20/20- OD. Pupils are symmetric and equally reactive, no APD noted however APD exam seems to not have been done properly. Per mom and provider, pupils have now returned to normal. CTH stroke was obtained and was normal. No other deficits noted by provider. Reminded provider that we cannot fully exclude vision-threatening or life- threatening problems via remote evaluation. While we can offer recommendations based on the information provided to us, decision-making is ultimately the provider's responsibility and we would be happy to evaluate the patientmore urgently if the provider and patient so choose. Provider expressed appropriate understanding of this. Recommendations: Strongly recommended transfer to [facility]/ for further ophthalmic evaluation. Patient and mother (RN)adamantly decline transfer and instead request outpatient follow up. Discussed with provider that while isolated anisocoria may be benign, it may also present with life threatening pathology such as carotid artery dissection, and that they should consider consulting their neurology team at a minimum. Provider voices her understanding of this and states that the patient/family wish for outpatient f/u. Will schedule in RONEL 8AM (earliest time available). Steve Huizar MD PGY2 Ophthalmology [facility] 02/18/2025 8:26 PM JAVA PROGRAMMER documented in this encounter Plan of Treatment Upcoming Encounters Date Type Department Care Team (Late st Contact Info) Description 02/28/2025 10:45 AM LEAD JAVA PROGRAMMER Office Visit [facility] [address] [place] [phone] Myrna Blood MD [address] DIV OF ORTHOPEDIC [place] [phone] documented as of this encounter Visit Diagnoses Not on filedocumented in this encounter Care Teams Sales Mgr Relationship Specialty Start Date End Date Sharita Adkins [address] [place] [phone] PCP - General 11/29/24 documented as of this encounter
--- OUTSIDE RECORDS SUMMARY | 2025-02-18 20:48 | XMS_ITS | Encounter Summary ---
Author Organization [facility] Address [address] [facility] [place] [address] Care Team Providers Care Supervisor Refractory Products Name Role Phone Sharita Adkins Primary Care Provider [phone] Reason for Visit * Reason Onset Date Comments Surgical Followup 02/18/2025 Encounter Details Date Type Department Care Team (Late st Contact Info) Description 02/18/2025 Telephone [facility] [address] [place] [address] Aleena Maloney RN Surgical Followup [...] will follow up with facility on evaluation. H SCIENCE TEACHER documented in this encounter Plan of Treatment Upcoming Encounters Date Type Department Care Team (Late st Contact Info) Description 02/28/2025 10:45 AM EARTH SCIENCE TEACHER Office Visit [facility] [address], [facility] [address] [place] [phone] Myrna Blood MD [address] [facility] [address] [place] [phone] documented as of this encounter Visit Diagnoses Not on filedocumented in this encounter Care Teams Supervisor Refractory Products Relationship Specialty Start Date End Date Sharita Adkins [address] [place] [phone] PCP - General 11/29/24 documented as of this encounter
== END 2025-02-18 20:40 | disposition home or self-care (01) ==
PROVIDERS: Emergency Provider Emergency Medicine
DX: H53.9 Unspecified visual disturbance (principal); F41.9 Anxiety disorder, unspecified
CPT/HCPCS: 70450; 72125; 99284